=== PATIENT | male | born 1970 | race Caucasian/White ===

== ENCOUNTER 2016-10-27 03:23 | Observation (INO) | payer SELFPAY ==
[2016-10-27] MEDS ORDERED: SODIUM CHLORIDE 0.9% 1,000 ML IV STA (04:00)
[2016-10-27] MEDS ORDERED: MORPHINE SULFATE 4 MG/ML SYRINGE IV STA (04:00)
--- NOTE | 2016-10-27 04:03 | ED ---
General Adult HPI - General Chief complaint: Abdominal Pain Stated complaint: kidney pain Time Seen by Provider: 10/27/16 03:51 Source: patient, RN notes reviewed Mode of arrival: ambulatory Limitations: no limitations - History of Present Illness Initial comments: Patient is a pleasant 46-year-old male presenting to the emergency department complaining of bilateral flank pain. Patient has had some chronic symptoms since 2007. Patient takes medication to protect his kidneys. Patient does have a history in the distant past of lithium toxicity. Patient states he has been having some loose stools and decreased appetite for the past few days. Patient has had some muscle cramps. - Related Data Home Medications Medication Instructions Recorded Confirmed Cyclobenzaprine HCl 5 mg PO TID 10/27/16 10/27/16 Escitalopram Oxalate [Lexapro] 20 mg PO DAILY 10/27/16 10/27/16 Esomeprazole Magnesium [NexIUM] 40 mg PO DAILY 10/27/16 10/27/16 Lisinopril [Zestril] 5 mg PO DAILY 10/27/16 10/27/16 QUEtiapine [SEROquel] 200 mg PO DAILY 10/27/16 10/27/16 QUEtiapine [SEROquel] 800 mg PO HS 10/27/16 10/27/16 Rosuvastatin [Crestor] 20 mg PO DAILY 10/27/16 10/27/16 busPIRone HCL 10 mg PO BID 10/27/16 10/27/16 traMADol HCL [Ultram] 50 mg PO Q6HR PRN 10/27/16 10/27/16 traZODone HCL [Desyrel] 100 mg PO HS 10/27/16 10/27/16 Allergies Allergy/AdvReac Type Severity Reaction Status Date / Time Penicillins Allergy Swelling Verified 10/27/16 03:37 Sulfa (Sulfonamide Allergy Swelling Verified 10/27/16 03:37 Antibiotics) Review of Systems ROS Statement: Those systems with pertinent positive or pertinent negative responses have been documented in the HPI. ROS Other: All systems not noted in ROS Statement are negative. Constitutional: Denies: fever Eyes: Denies: eye pain ENT: Denies: ear pain Respiratory: Denies: cough Cardiovascular: Denies: chest pain Endocrine: Denies: fatigue Gastrointestinal: Denies: abdominal pain, vomiting Genitourinary: Denies: dysuria Musculoskeletal: Reports: back pain (Bilateral flank) Skin: Denies: rash Neurological: Denies: weakness Past Medical History Past Medical History: Renal Disease Additional Past Medical History / Comment(s): [place], Bipolar History of Any Multi-Drug Resistant Organisms: None Reported Past Surgical History: No Surgical Hx Reported Past Psychological History: Anxiety, Bipolar, Depression Smoking Status: Current every day smoker Past Alcohol Use History: None Reported Past Drug Use History: None Reported General Exam Limitations: no limitations General appearance: alert, in no apparent distress Head exam: Present: atraumatic Eye exam: Present: normal appearance, PERRL ENT exam: Present: normal oropharynx Neck exam: Present: normal inspection Respiratory exam: Present: normal lung sounds bilaterally Cardiovascular Exam: Present: regular rate, normal rhythm Expanded Peripheral pulses: 2+: Dorsalis Pedis (R), Dorsalis Pedis (L) GI/Abdominal exam: Present: soft. Absent: distended, tenderness, guarding, rebound, rigid Back exam: Present: CVA tenderness (R), CVA tenderness (L), other (Patient does have mild tenderness bilateral CVA region and below this.) Neurological exam: Present: alert Psychiatric exam: Present: normal affect, normal mood Skin exam: Absent: rash Course Vital Signs 10/27/16 03:31 Temperature 98.1 F Pulse Rate 118 H Respiratory 20 Rate Blood Pressure 117/66 O2 Sat by Pulse 99 Oximetry Medical Decision Making - Medical Decision Making Patient reevaluated and updated. Case discussed in detail with Dr. Wu, who will admit for hospital call. Patient does not have an acute surgical abdomen at this time. Pneumatosis coli could have multiple etiologies including possibly benign causes. Nevertheless this will be further evaluated with consults with gastroenterology and surgical - Lab Data Result diagrams: 10/27/16 04:05 10/27/16 04:05 Lab Results 10/27/16 10/27/16 10/27/16 Range/Units 04:05 04:05 04:05 WBC 10.9 H (3.8-10.6) k/uL RBC 4.16 L (4.30-5.90) m/uL Hgb 12.5 L (13.0-17.5) gm/dL Hct 39.4 (39.0-53.0) % MCV 94.8 (80.0-100.0) fL MCH 30.0 (25.0-35.0) pg MCHC 31.6 (31.0-37.0) g/dL RDW 15.7 H (11.5-15.5) % Plt Count 216 (150-450) k/uL Neutrophils % 64 % Lymphocytes % 25 % Monocytes % 5 % Eosinophils % 2 % Basophils % 0 % Neutrophils # 7.0 (1.3-7.7) k/uL Lymphocytes # 2.7 (1.0-4.8) k/uL Monocytes # 0.6 (0-1.0) k/uL Eosinophils # 0.3 (0-0.7) k/uL Basophils # 0.0 (0-0.2) k/uL PT 10.2 (9.0-12.0) sec INR 1.0 (<1.1) APTT 22.4 (22.0-30.0) sec Sodium 137 (137-145) mmol/L Potassium 4.0 (3.5-5.1) mmol/L Chloride 104 (98-107) mmol/L Carbon Dioxide 23 (22-30) mmol/L Anion Gap 10 mmol/L BUN 13 (9-20) mg/dL Creatinine 2.10 H (0.66-1.25) mg/dL Est GFR (MDRD) Af Amer 41 (>60 ml/min/1.73 sqM) Est GFR (MDRD) Non-Af 34 (>60 ml/min/1.73 sqM) Glucose 93 (74-99) mg/dL Calcium 9.0 (8.4-10.2) mg/dL Total Bilirubin 0.4 (0.2-1.3) mg/dL AST 17 (17-59) U/L ALT 24 (21-72) U/L Alkaline Phosphatase 96 (38-126) U/L Total Protein 6.7 (6.3-8.2) g/dL Albumin 4.1 (3.5-5.0) g/dL Amylase 67 (30-110) U/L Lipase 101 (23-300) U/L - Radiology Data Radiology results: image reviewed (Computed tomography scan of the abdomen pelvis shows some fluid-filled intestines, cholelithiasis, pneumatosis coli) Disposition Clinical Impression: Abdominal pain Disposition: ADMITTED IP TO THIS HOSP
[2016-10-27 04:17] LABS: Basophils % (A) 0 %; CH 30.4; CHCM 32.2; Eosinophils # (A) 0.3 k/uL (0-0.7); Eosinophils % (A) 2 %; HCT 39.4 % (39.0-53.0); HDW 2.67; HGB 12.5 gm/dL (13.0-17.5); Luc # (Auto) 0.31; Luc % (Auto) 3; Lymphocytes # (A) 2.7 k/uL (1.0-4.8); Lymphocytes % (A) 25 %; MCHC 31.6 g/dL (31.0-37.0); MCV 94.8 fL (80.0-100.0); Mean Platelet Volume 7.1; Monocytes # (A) 0.6 k/uL (0-1.0); Monocytes % (A) 5 %; Neutrophils % (A) 64 %; RBC 4.16 m/uL (4.30-5.90); RDW 15.7 % (11.5-15.5); WBC 10.9 k/uL (3.8-10.6); WBC (Perox) 11.07
[2016-10-27 04:31] LABS: Partial Thromboplastin Time 22.4 sec (22.0-30.0); Prothrombin Time 10.2 sec (9.0-12.0)
[2016-10-27 04:33] LABS: Total Bilirubin 0.4 mg/dL (0.2-1.3); Total Protein 6.7 g/dL (6.3-8.2)
--- NOTE | 2016-10-27 05:02 | CT ---
EXAM: CT Abdomen and Pelvis Without Intravenous Contrast. CLINICAL HISTORY: Reason: Bilateral flank pain TECHNIQUE: Axial computed tomography images of the abdomen and pelvis without intravenous contrast. CTDI is 10.00 mGy and DLP is 570.80 mGy-cm COMPARISON: No relevant prior studies available. FINDINGS: Limitations: Lack of intravenous contrast Lower thorax: Trace pericardial effusion versus thickening. Small hiatal hernia. Nonspecific subcentimeter periesophageal lymph nodes. ABDOMEN: Liver: No portal venous gas. Gallbladder and bile ducts: Cholelithiasis. Pancreas: Unremarkable. Spleen: Unremarkable. Adrenals: Unremarkable. Kidneys and ureters: Small partially exophytic low attenuating left renal lesions, likely cysts. Small partially exophytic right renal lesion is too small to characterize. No nephrolithiasis or hydroureteronephrosis. Stomach and bowel: Antidependent gas in the ascending colon is concerning for pneumatosis coli. No pericolonic stranding or definite bowel wall thickening. Prominent fluid-filled loops of distal small bowel without a transition point are nonspecific and can be seen in the setting of enteritis or an ileus. Appendix: No findings to suggest acute appendicitis. PELVIS: Bladder: Unremarkable. No stones. Reproductive: Unremarkable as visualized. ABDOMEN and PELVIS: Intraperitoneal space: Unremarkable. No free air. No significant fluid collection. Bones/joints: Degenerative changes of the spine. No acute osseous abnormality. Soft tissues: Unremarkable. Vasculature: Mild atherosclerosis and fusiform dilatation of the abdominal aorta. Lymph nodes: See above. IMPRESSION: Pneumatosis coli in the ascending colon. No colonic wall thickening, surrounding inflammatory change, portal venous gas, free fluid, or free air. Pneumatosis coli is a nonspecific finding with a broad differential including bowel ischemia, colitis, and multiple benign causes, including pulmonary disease, immunosuppression, and multiple medications. Prominent fluid-filled loops of distal small bowel without a transition point are nonspecific and can be seen in the setting of enteritis or an ileus. Cholelithiasis. [employer] 10/27/16 05:22 Verify Receipt Verified receipt with Dr. Velasquez on 10/27 05:22 (-04:00)
[2016-10-27] MEDS ORDERED: NALOXONE 0.4 MG/ML 1 ML VIAL IV PRN (05:17)
[2016-10-27] MEDS ORDERED: MORPHINE SULFATE 4 MG/ML SYRINGE IV PRN (05:17)
[2016-10-27 05:44] LABS: Appearance,Urine Clear (Clear); Bilirubin,Urine Negative (Negative); Glucose,Urine (UA) Negative (Negative); Ketones,Urine Negative (Negative); Leukocyte Esterase,Urine Negative (Negative); Nitrite,Urine Negative (Negative); Protein,Urine Trace (Negative); Specific Gravity,Urine 1.005 (1.001-1.035); UA Billing (MACRO vs. MICRO) CHEM; Urobilinogen,Urine <2.0 mg/dL (<2.0)
--- NOTE | 2016-10-27 08:53 | US ---
EXAMINATION TYPE: US gallbladder DATE OF EXAM: 10/27/2016 8:26 AM COMPARISON: CT abdomen pelvis same date CLINICAL HISTORY: Pain. EXAM MEASUREMENTS: Liver Length: 14.9 cm Gallbladder Wall: 0.2 cm CBD: 0.5 cm Right Kidney: 9.9 x 5.8 x 5.0 cm TECHNOLOGIST IMPRESSION: limited exam; liver high in chest, images limited to intercostal spaces Pancreas: Obscured by bowel gas Liver: intercostal scans, echo texture appears homogeneous Gallbladder: stone seen at neck Evidence for sonographic Paulino's sign: no CBD: wnl Right Kidney: No hydronephrosis or masses seen There is no ascites. IMPRESSION: Exam is limited. The liver is poorly penetrated by the ultrasound being. There may be fat ty infiltration of the liver versus hepatocellular disease, there is cholelithiasis
[2016-10-27] MEDS: PANTOPRAZOLE 40 MG/10 ML VIAL IV SCH (10:52)
[2016-10-27] MEDS: SODIUM CHLORIDE 0.9% 1,000 ML IV SCH ×2 (10:52→19:21)
--- NOTE | 2016-10-27 12:06 | P.CONS ---
History of Present Illness - Reason for Consult Consult date: 10/27/16 Pneumatosis coli Requesting physician: Tito Wu - History of Present Illness 46-year-old male with a history of cholelithiasis, GERD, hyperlipidemia, hypertension, chronic kidney disease, [place]'s, nicotine cigarette dependency, bipolar depression, lithium toxicity, and chronic numbness hands feet. Admitted with exacerbation of right flank pain over the last 3 days. Patient has had chronic flank pain for more than a year. He thinks the pain is related to his gallstones. He said about a year ago he was supposed to have a cholecystectomy but it was canceled. Intermittent diarrhea for the last 2 weeks several times a day sometimes blood-tinged. No recent travels or sick contacts. No recent antibiotics. No history of colonoscopy. No fevers or chills. Hemoglobin 12.5. MCV 94. White count 10.9. INR 1.0. Platelet 216. BUN 13. Creatinine 2.1. LFTs amylase lipase within normal limits. CT abdomen and pelvis without IVl contrast reported cholelithiasis. Renal cysts. Pneumatosis coli in the ascending colon without colonic wall thickening portal vein gas, fluid, or free air. Ultrasound abdomen cholelithiasis stone seen at neck. CBD 0.5 cm. Gallbladder wall 0.2 cm without pericholecystic fluid. Review of Systems Constitutional: Denies fever, chills, sweats, weight gain, or loss. HEENT: Negative for migraines, blurred vision or loss, earaches, drainage, tinnitus, oral mucosal lesions, dysphagia, or odynophagia. Cardiac: Hyperlipidemia. Hypertension. Negative for chest pain, arrhythmias, or palpitation. Respiratory: Nicotine cigarette dependency. Negative for shortness of breath, hemoptysis, cough, or sputum production. Gastrointestinal: See HPI for pertinent findings. Genitourinary: Negative for hematuria, urgency, frequency, polyuria, dysuria, or penile discharge. Musculoskeletal: [place]'s disease. Negative for muscle aches, swelling, arthritis, and arthralgias. Neurologic: Negative for stroke or TIA. Chronic numbness in hands and feet. Endocrine: Negative for thyroid problems. Nephrology: Chronic kidney disease stage III. Skin: Negative for rash or itching. Psychiatric: Bipolar depression. All systems: negative (See HPI) Past Medical History Past Medical History: GERD/Reflux, Hyperlipidemia, Hypertension, Renal Disease Additional Past Medical History / Comment(s): Cindi, Pt states he has gallstones and is suppose to have his gallbladder removed, past lithium toxicity , CKD stage III B, gastritis, bilateral hands and feet pain and numbness, headaches. History of Any Multi-Drug Resistant Organisms: None Reported Past Surgical History: No Surgical Hx Reported Past Anesthesia/Blood Transfusion Reactions: Motion Sickness Additional Past Anesthesia/Blood Transfusion Reaction / Comm: Pt has never had general or spinal anesthesia. Past Psychological History: Anxiety, Bipolar, Depression Additional Psychological History / Comment(s): Pt moved from [place] to [place] in March 2016. He is living with his two teenage sons, one of which has cerebral palsy (high functioning). Pt has been using his wheelchair lately due to not feeling well. Pt drives. There is also a dog and puppy in the home. Smoking Status: Current every day smoker Past Alcohol Use History: None Reported Additional Past Alcohol Use History / Comment(s): Pt states he started smoking in 1979 and is cutting down. He is now less than a pack a day smoker. He also smokes an E-cigarette. Past Drug Use History: None Reported - Past Family History Father Family Medical History: Myocardial Infarction ([place]) Additional Family Medical History / Comment(s): Father of a [place] at the age of 63yrs. Mother Additional Family Medical History / Comment(s): Mother is living. She has a bone density problem. Medications and Allergies Home Medications Medication Instructions Recorded Confirmed Type Cyclobenzaprine HCl 5 mg PO TID 10/27/16 10/27/16 History Escitalopram Oxalate [Lexapro] 40 mg PO DAILY 10/27/16 10/27/16 History Esomeprazole Magnesium [NexIUM] 40 mg PO DAILY 10/27/16 10/27/16 History Lisinopril [Zestril] 5 mg PO DAILY 10/27/16 10/27/16 History QUEtiapine [SEROquel] 200 mg PO DAILY 10/27/16 10/27/16 History QUEtiapine [SEROquel] 800 mg PO HS 10/27/16 10/27/16 History Rosuvastatin [Crestor] 20 mg PO DAILY 10/27/16 10/27/16 History busPIRone HCL 10 mg PO BID 10/27/16 10/27/16 History traMADol HCL [Ultram] 50 - 100 mg PO Q6HR PRN 10/27/16 10/27/16 History traZODone HCL [Desyrel] 300 mg PO HS 10/27/16 10/27/16 History Allergies Allergy/AdvReac Type Severity Reaction Status Date / Time Penicillins Allergy Swelling Verified 10/27/16 08:04 Sulfa (Sulfonamide Allergy Swelling Verified 10/27/16 08:04 Antibiotics) tomato Allergy Unknown Verified 10/27/16 08:04 Physical Exam Vitals: Vital Signs Temp Pulse Pulse Resp BP BP Pulse Ox 10/27/16 08:00 70 10/27/16 07:49 97.8 F 84 16 115/69 93 L 10/27/16 06:13 86 16 124/73 98 Intake and Output 10/26/16 10/27/16 10/27/16 22:59 06:59 14:59 Other: Voiding Method Toilet Urinal General appearance: The patient is alert, oriented, in no acute distress. HET: Head is normocephalic and atraumatic. Pupils are equal and reactive. Oropharynx is clear without lesions. Neck: Supple without lymphadenopathy. Trachea midline. Heart: S1 S2. Regular rate and rhythm. Lungs: No crackles or wheezes are heard. Abdomen: Soft, very mild tenderness to right mid quadrant/flank, negative CVA tenderness, nondistended with bowel sounds. No peritoneal signs. No palpable organomegaly or masses. Extremities: Normal skin color and turgor. No cyanosis, rash, ulceration, clubbing, or edema. Radial and pedal pulses are 2/4 bilaterally. Neurological: No focal deficits. Strength and sensation are grossly intact. Results CBC & Chem 7: 10/27/16 04:05 10/27/16 04:05 Labs: Abnormal Lab Results - Last 24 Hours (Table) 10/27/16 Range/Units 05:30 Urine Protein Trace H (Negative) CT scan - abdomen: report reviewed (Reviewed by Dr. Alcantar) CT scan - pelvis: report reviewed (Reviewed by Dr. Alcantar) Assessment and Plan (1) Acute right flank pain Narrative/Plan: Pneumatosis coli ascending colon as reported on CT etiology unclear Status: Acute (2) Diarrhea Narrative/Plan: Possible self limiting infectious colitis possible inflammatory Status: Acute (3) Cholelithiasis Status: Acute Plan: 1. Stool studies. 2. Gen. surgical evaluation. 3. Nothing by mouth except medications until evaluated by general surgery. 4. Colonoscopy discussed as outpatient; contingent inpatient based on clinical course. We'll reevaluate and follow closely with you. Await surgical opinion. Thank you for this kind referral and the opportunity to participate in the care of your patient. This consultation was discussed with Dr. Alcantar. The impression and plan of care have been directed as dictated.
[2016-10-27] MEDS ORDERED: TEMAZEPAM 15 MG CAP PO PRN (15:09)
--- NOTE | 2016-10-27 15:29 | P.GSCN ---
<Jeannette Gross - Last Filed: 10/27/16 15:17> History of Present Illness Consult date: 10/27/16 Reason for Consult: surgical eval bilateral flank pain History of present illness: 46-year-old male patient being seen at the request of the attending for a surgical eval for recommendations to address an ultrasound of the abdomen showing cholelithiasis.with a stone at the neck. Common bile duct measures 0.5 cm. The gallbladder wall measures 0.2 cm without . periCholecysticfluid. This 46-year-old gentleman reports that he moved from [place] in March 2 [facility] where he has been living. He states he has no medical doctor. Patient states that he came into the emergency room to be evaluated for developing right flank pain. Patient states that he has had for the past several months bright red bloody stools. Additionally patient reports that when he lived in [place] in March he did see a surgeon who told him his gallbladder needed to be removed and they would also do a colonoscopy as part of a workup for the for the episodes of frequent stooling with blood noted in the stool. Patient does have a history of a mood disorder bipolar type I patient states he has not seen a psychiatrist since he has moved from [place] Patient had a CAT scan of the abdomen pelvis without IV contrast it did report cholelithiasis with renal cysts. Also noted Pneumatosis coli in the ascending colon without colonic wall thickening portal vein gas, fluid, or free air. Ultrasound abdomen cholelithiasis stone seen at neck. CBD 0.5 cm. Gallbladder wall 0.2 cm without pericholecystic fluid. The labs were reviewed hemoglobin 12.5. Creatinine 2.1 in the liver function studies amylase and lipase were within normal limits. Patient states has not been experiencing any cough fever or chills. This been no recent change in medication or recent travel or contacts additionally patient denies any unintentional weight loss patient is a current every day smoker smokes a cigarettes patient gives no history of alcohol Review of Systems Essentially unremarkable except as mentioned in the present illness Past Medical History Past Medical History: GERD/Reflux, Hyperlipidemia, Hypertension, Renal Disease Additional Past Medical History / Comment(s): Cindi Pt states he has gallstones and is suppose to have his gallbladder removed, past lithium toxicity , CKD stage III B, gastritis, bilateral hands and feet pain and numbness, headaches. History of Any Multi-Drug Resistant Organisms: None Reported Past Surgical History: No Surgical Hx Reported Past Anesthesia/Blood Transfusion Reactions: Motion Sickness Additional Past Anesthesia/Blood Transfusion Reaction / Comm: Pt has never had general or spinal anesthesia. Past Psychological History: Anxiety, Bipolar, Depression Additional Psychological History / Comment(s): Pt moved from [place] to [place] in March 2016. He is living with his two teenage sons, one of which has cerebral palsy (high functioning). Pt has been using his wheelchair lately due to not feeling well. Pt drives. There is also a dog and puppy in the home. Smoking Status: Current every day smoker Past Alcohol Use History: None Reported Additional Past Alcohol Use History / Comment(s): Pt states he started smoking in 1979 and is cutting down. He is now less than a pack a day smoker. He also smokes an E-cigarette. Past Drug Use History: None Reported - Past Family History Father Family Medical History: Myocardial Infarction ([place]) Additional Family Medical History / Comment(s): Father of a [place] at the age of 63yrs. Mother Additional Family Medical History / Comment(s): Mother is living. She has a bone density problem. Medications and Allergies Home Medications Medication Instructions Recorded Confirmed Type Cyclobenzaprine HCl 5 mg PO TID 10/27/16 10/27/16 History Escitalopram Oxalate [Lexapro] 40 mg PO DAILY 10/27/16 10/27/16 History Esomeprazole Magnesium [NexIUM] 40 mg PO DAILY 10/27/16 10/27/16 History Lisinopril [Zestril] 5 mg PO DAILY 10/27/16 10/27/16 History QUEtiapine [SEROquel] 200 mg PO DAILY 10/27/16 10/27/16 History QUEtiapine [SEROquel] 800 mg PO HS 10/27/16 10/27/16 History Rosuvastatin [Crestor] 20 mg PO DAILY 10/27/16 10/27/16 History busPIRone HCL 10 mg PO BID 10/27/16 10/27/16 History traMADol HCL [Ultram] 50 - 100 mg PO Q6HR PRN 10/27/16 10/27/16 History traZODone HCL [Desyrel] 300 mg PO HS 10/27/16 10/27/16 History Allergies Allergy/AdvReac Type Severity Reaction Status Date / Time Penicillins Allergy Swelling Verified 10/27/16 08:04 Sulfa (Sulfonamide Allergy Swelling Verified 10/27/16 08:04 Antibiotics) tomato Allergy Unknown Verified 10/27/16 08:04 Surgical - Exam Vital Signs Temp Pulse Resp BP Pulse Ox 98.1 F 118 H 20 117/66 99 10/27/16 03:31 10/27/16 03:31 10/27/16 03:31 10/27/16 03:31 10/27/16 03:31 GENERAL APPEARANCE: 46-year-old male patient is alert, oriented, in no acute distress. Talkative VITAL SIGNS: Reviewed HEENT: Head is normocephalic and atraumatic. Pupils are equal and reactive. The nares are patent. Oropharynx is clear without lesions. NECK: Supple without lymphadenopathy. Traches midline. HEART: S1, S2. Regular rate and rhythm. No murmur noted denying chest pain LUNGS: No crackles or wheezes are heard. Adequate air movement bilaterally ABDOMEN: Soft, nontender, nondistended with good bowel sounds. No peritoneal signs. No palpable organomegaly or masses. Able to palpate abdominal wall no facial grimacing reports having tenderness to right flank discomfort patient states he has had not had a bowel movement since admission but had several bowel movements the day before that were bright red blood in the toilet bowl noted states the stools are not black in color states urinating no difficulty EXTREMITIES: Normal skin color and turgor. No cyanosis, rash, ulceration, clubbing or edema. Radial pedal pulses are 2/4 bilaterally. NEUROLOGICAL: No focal deficits. Strength and sensation are grossly intact. Results - Labs 10/27/16 04:05 10/27/16 04:05 Abnormal Lab Results - Last 24 Hours (Table) 10/27/16 Range/Units 05:30 Urine Protein Trace H (Negative) Assessment and Plan Plan: Impression Present on admission acute right flank pain CAT scan reports Pneumatosis coli ascending colon unclear etiology History of bright red diarrhea frequent stooling likely due to self-limiting infectious colitis possible inflammatory History of bipolar type I disorder Current every day smoker Ultrasound abdomen likely acute cholelithiasis Plan We'll repeat an abdominal x-ray in the morning Follow up on stool studies dr huston discussed with the patient recommendations to do colonoscopy could be done in an outpatient setting possible cholecystectomy for the cholelithiasis once patient is stable which could be addressed in the outpatient setting a follow-up visit in the office with Pain control Further recommendations pending will follow Psych recommendations bipolar type I Thank you for this kind referral and the opportunity to participate in the care of your patient. This consultation was discussed with Dr. huston . The impression and plan of care have been directed as dictated. Per Dr. huston <Arabella Huston - Last Filed: 10/27/16 17:12> Surgical - Exam Vital Signs Temp Pulse Resp BP Pulse Ox 98.1 F 118 H 20 117/66 99 10/27/16 03:31 10/27/16 03:31 10/27/16 03:31 10/27/16 03:31 10/27/16 03:31 Results - Labs 10/27/16 04:05 10/27/16 04:05 Abnormal Lab Results - Last 24 Hours (Table) 10/27/16 10/27/16 Range/Units 05:30 12:13 Plasma Lactic Acid Martinez <0.5 L (0.7-2.0) mmol/L Urine Protein Trace H (Negative) Assessment and Plan Plan: Patient examines at bedside with [employer] Jeannette Gross. Unreliable history - bipolar disorder and unclear about prior treatments in [place]. Benign abdominal exam. No peritonitis. Ct scan and US reviwed. Normal labs .Recommend outpatient colonoscopy as per GI. elective lap eileen once colonoscopy is performed. Repeat am Xrays and labs. Strongly recommend pyschiatry evaluation as inpatient.Please determine if patient is competent bruno make medical decisions. Thank you for the consultation
[2016-10-27] MEDS ORDERED: LEVOFLOXACIN 500MG-D5W PMX 500 MG in DEXTROSE/WATER 1 100ML.BAG IVPB SCH (16:00)
[2016-10-27] MEDS: CYCLOBENZAPRINE 5 MG TAB PO SCH ×2 (18:29→21:08)
[2016-10-27] MEDS: QUEtiapine 200 MG TAB PO SCH (18:29)
--- NOTE | 2016-10-27 18:53 | HP ---
DATE OF ADMISSION: 10/27/2016 CHIEF COMPLAINT: Complaining of abdominal pain. HISTORY OF PRESENT ILLNESS: This 46-year-old gentleman with a past history of multiple medical problems including GERD, hypertension, history of Moore's disease, history of renal disease, history of bipolar, history of anxiety bipolar depression, being followed by primary physician in the [facility], recently moved to [facility]. The patient is complaining of abdominal pain on and off for the last several years. The patient has been getting worse for the past several days and the patient came to [facility] Emergency Room Department and admitted to the hospital for further evaluation and treatment. The patient had a CAT scan of the abdomen which showed pneumocystis coli, and as well as cholelithiasis and surgical evaluation in progress also. The ultrasound showed cholelithiasis as well as fatty infiltration also. There is no history of fever, rigors or chills. No history of loss of consciousness or seizures. PAST MEDICAL HISTORY: History of gastroesophageal reflux disease, hypertension, hyperlipidemia, history of renal disease, disease, anxiety, bipolar depression. Medication prior to admission includes: 1. Desyrel 300 mg q.h.s. 2. Ultram 50 to 100 q.6 p.r.n. 3. Lexapro 40 mg daily. 4. Buspirone 10 mg b.i.d. 5. Crestor 20 mg q.a.m. 6. Seroquel q.h.s. 200 mg daily. 7. Zestril 5 mg p.o. daily. 8. Nexium 40 mg daily. ALLERGIES: PENICILLIN . FAMILY HISTORY: History of myocardial infarction in the family. SOCIAL HISTORY: History of smoking on a regular basis. No history of alcohol intake. REVIEW OF SYSTEMS: ENT: No diminished hearing. No diminished vision. CARDIOVASCULAR: No angina or palpitations. RESPIRATORY: No cough or hemoptysis. GI: No nausea or vomiting. GENITOURINARY: No dysuria. MUSCULOSKELETAL: As mentioned earlier. CENTRAL NERVOUS SYSTEM: No numbness or weakness. ALLERGY/IMMUNOLOGY: No asthma or hayfever. MUSCULOSKELETAL: As mentioned earlier. HEMATOLOGY/ONCOLOGY: No history of anemia. ENDOCRINE: As mentioned earlier. CONSTITUTIONAL: As mentioned earlier. DERMATOLOGY: Negative. RHEUMATOLOGY: As mentioned earlier. PSYCHIATRY: As mentioned earlier. PHYSICAL EXAMINATION: The patient is alert and oriented times three. Pulse is 84, blood pressure 115/69, respiratory rate 16, temperature 97.8, pulse ox 97% on room air. HEENT: Conjunctivae normal. Oral mucosa moist. NECK: No jugular venous distention. No carotid bruit. No lymph node enlargement. CARDIOVASCULAR: S1, S2 muffled. No S3, no S4. RESPIRATORY: Breath sounds diminished at the bases. Bilateral scattered rhonchi and crackles. ABDOMEN: Soft and nontender. Mild diffuse tenderness in the right upper quadrant present. Otherwise, no guarding, no rigidity. No mass palpable. tenderness is not present. No ascites. Legs: No edema, no swelling. Nervous system: Higher functions as mentioned earlier. No focal deficits. Moves all four limbs. LYMPHATICS: No lymph nodes palpable in the neck, axillae or groin. SKIN: No ulcer, rash or bleeding. LABS: WBC 10.3, hemoglobin 12.5, creatinine 2.10. ASSESSMENT: 1. Abdominal pain with acute cholelithiasis. 2. pneumatosis coli. 3. Increased WBC. 4. Anemia, normocytic. 5. Increased creatinine with mild acute renal failure, possible prerenal with dehydration. 6. History of gastroesophageal reflux disease. 7. Hypertension, essential. 8. Hyperlipidemia. 9. History of Moore's disease. 10. History of chronic kidney disease, stage III. 11. History of lithium toxicity. 12. History of anxiety, bipolar depression. 13. Remote history of nicotine dependence. 14. FULL CODE. RECOMMENDATIONS AND DISCUSSION: In this 46-year-old gentleman who presented with multiple complex medical issues, we will monitor the patient closely. Continue the current medications. Continue symptomatic treatment. We will initiate IV fluids and surgical evaluation, broad-spectrum antibiotics also will be given. Guarded prognosis because of multiple complex medical issues. Further recommendations to follow. DVT prophylaxis. See orders for further details. Home medications reconciliation has been done. Further recommendations to follow. Also recommend the patient to follow up with primary physician also. [place]
[2016-10-27] MEDS: ESCITALOPRAM 20 MG TAB PO SCH (19:17)
[2016-10-27] MEDS ORDERED: traZODone HCL 100 MG TAB PO SCH (21:00)
[2016-10-27] MEDS ORDERED: QUEtiapine 400 MG TAB PO SCH (21:00)
[2016-10-27] MEDS: busPIRone HCl 10 MG TAB PO SCH (21:08)
[2016-10-27] MEDS: HEPARIN SODIUM,PORCINE 5,000 UNIT/ML 1 ML VIAL SQ SCH (21:08)
[2016-10-28] MEDS: SODIUM CHLORIDE 0.9% 1,000 ML IV SCH ×2 (04:40→12:22)
[2016-10-28 08:04] VITALS: BP 103/59; PULSE 98; RESP 18; TEMP 96.9
[2016-10-28] MEDS ORDERED: NON-FORMULARY DRUG (Esomeprazole Magnesium [Nexium] 40 MG) PO SCH (09:00)
[2016-10-28 09:32] LABS: Basophils % (A) 0 %; CH 29.7; CHCM 31.1; Eosinophils # (A) 0.1 k/uL (0-0.7); Eosinophils % (A) 2 %; HCT 34.5 % (39.0-53.0); HDW 2.65; HGB 10.9 gm/dL (13.0-17.5); Hypochromasia Slight; Luc # (Auto) 0.16; Luc % (Auto) 2; Lymphocytes # (A) 1.7 k/uL (1.0-4.8); Lymphocytes % (A) 19 %; MCH 30.3 pg (25.0-35.0); MCHC 31.5 g/dL (31.0-37.0); Mean Platelet Volume 6.6; Monocytes # (A) 0.5 k/uL (0-1.0); Monocytes % (A) 5 %; Neutrophils # (A) 6.4 k/uL (1.3-7.7); Neutrophils % (A) 72 %; RBC 3.59 m/uL (4.30-5.90); RDW 15.6 % (11.5-15.5); WBC 8.9 k/uL (3.8-10.6); WBC (Perox) 9.59
[2016-10-28 09:40] LABS: Calcium 8.6 mg/dL (8.4-10.2); Potassium 4.5 mmol/L (3.5-5.1); Total Bilirubin 0.5 mg/dL (0.2-1.3); Total Protein 5.5 g/dL (6.3-8.2)
--- NOTE | 2016-10-28 09:44 | XR ---
EXAMINATION TYPE: XR abdomen 2V DATE OF EXAM: 10/28/2016 7:19 AM COMPARISON: NONE HISTORY: Right upper quadrant pain TECHNIQUE: One view abdominal series FINDINGS: The osseous structures are intact. The bowel gas pattern is nonspecific. Calcifications in the pelvi s are likely vascular. IMPRESSION: 1. Nonspecific abdomen.
[2016-10-28] MEDS: busPIRone HCl 10 MG TAB PO SCH (10:00)
[2016-10-28] MEDS: PANTOPRAZOLE 40 MG/10 ML VIAL IV SCH (10:01)
[2016-10-28] MEDS: ESCITALOPRAM 20 MG TAB PO SCH (10:01)
[2016-10-28] MEDS: HEPARIN SODIUM,PORCINE 5,000 UNIT/ML 1 ML VIAL SQ SCH (10:01)
[2016-10-28] MEDS: CYCLOBENZAPRINE 5 MG TAB PO SCH (10:01)
[2016-10-28] MEDS: QUEtiapine 200 MG TAB PO SCH (10:02)
--- NOTE | 2016-10-28 11:03 | P.PN ---
Subjective Principal diagnosis: Right flank abdominal pain with diarrhea 46-year-old male admitted with right flank pain and diarrhea with cholelithiasis. No reports of diarrhea. Pain is improving. Afebrile. Objective - Vital Signs Vital signs: Vital Signs Temp 96.9 F L 10/28/16 08:03 Pulse 98 10/28/16 08:03 Resp 18 10/28/16 08:03 BP 103/59 10/28/16 08:03 Pulse Ox 90 L 10/28/16 08:03 Intake & Output 10/27/16 10/28/16 10/28/16 18:59 06:59 18:59 Intake Total 240 1090 Output Total 942 279 2267 Balance -560 465 -1400 Intake: IV 1090 Levofloxacin 500Mg-D5w 100 Pmx 500 mg In Dextrose/ Water 1 100ml.bag @ 100 mls/hr IVPB Q24H [facility] Rx#: [id number] Sodium Chloride 0.9% 1, 990 000 ml @ 110 mls/hr IV . Q9H6M [facility] Rx#:[id number] Oral 240 Output: Urine 099 795 0814 Other: Voiding Method Toilet Toilet Toilet Urinal Urinal # Voids 2 - Exam General appearance: The patient is alert, oriented, in no acute distress. HET: Head is normocephalic and atraumatic. Pupils are equal and reactive. Oropharynx is clear without lesions. Neck: Supple without lymphadenopathy. Trachea midline. Heart: S1 S2. Regular rate and rhythm. Lungs: No crackles or wheezes are heard. Abdomen: Soft, nontender, nondistended with bowel sounds. No peritoneal signs. No palpable organomegaly or masses. Extremities: Normal skin color and turgor. No cyanosis, rash, ulceration, clubbing, or edema. Radial and pedal pulses are 2/4 bilaterally. Neurological: No focal deficits. Strength and sensation are grossly intact. - Labs CBC & Chem 7: 10/28/16 08:42 10/28/16 08:42 Labs: Abnormal Lab Results - Last 24 Hours (Table) 10/27/16 10/28/16 10/28/16 Range/Units 12:13 08:42 08:42 RBC 3.59 L (4.30-5.90) m/uL Hgb 10.9 L (13.0-17.5) gm/dL Hct 34.5 L (39.0-53.0) % RDW 15.6 H (11.5-15.5) % Chloride 116 H (98-107) mmol/L Carbon Dioxide 20 L (22-30) mmol/L Creatinine 1.87 H (0.66-1.25) mg/dL Plasma Lactic Acid Martinez <0.5 L (0.7-2.0) mmol/L Total Protein 5.5 L (6.3-8.2) g/dL Albumin 3.1 L (3.5-5.0) g/dL Microbiology - Last 24 Hours (Table) 10/27/16 15:45 Urine Culture - Preliminary Urine,Voided Assessment and Plan (1) Acute right flank pain Narrative/Plan: Pneumatosis coli ascending colon as reported on CT etiology unclear Status: Acute (2) Diarrhea Narrative/Plan: Possible self limiting infectious colitis possible inflammatory Status: Acute (3) Cholelithiasis Status: Acute Plan: 1. Stool studies. 2. Gen. surgical evaluation appreciated. 3. Start diet if agreeable with general surgery. 4. Colonoscopy discussed as outpatient; we'll schedule next week. We'll follow as needed.. Assessment and plan of care discussed with Dr. Alcantar.
--- NOTE | 2016-10-28 12:31 | P.PN ---
<Kiana Grossne M - Last Filed: 10/28/16 12:27> Subjective Being seen this morning is resting in bed. Patient states his pain has improved is been no document stooling the abdominal x-ray obtained this morning nonspecific abdominal findings no acute GI service indicates that there is no further workup at this time they will see patient in an outpatient setting and set up for an outpatient colonoscopy to be done reinforced to the patient. Objective - Vital Signs Vital signs: Vital Signs Temp 96.9 F L 10/28/16 08:03 Pulse 98 10/28/16 08:03 Resp 18 10/28/16 08:03 BP 103/59 10/28/16 08:03 Pulse Ox 90 L 10/28/16 08:03 Intake & Output 10/27/16 10/28/16 10/28/16 18:59 06:59 18:59 Intake Total 240 1090 Output Total 586 081 0157 Balance -560 465 -1400 Intake: IV 1090 Levofloxacin 500Mg-D5w 100 Pmx 500 mg In Dextrose/ Water 1 100ml.bag @ 100 mls/hr IVPB Q24H [facility] Rx#: [id number] Sodium Chloride 0.9% 1, 990 000 ml @ 110 mls/hr IV . Q9H6M [facility] Rx#:[id number] Oral 240 Output: Urine 933 130 2909 Other: Voiding Method Toilet Toilet Toilet Urinal Urinal # Voids 2 - Exam Physical exam 46-year-old male resting in bed does not appear in any acute distress states the abdominal pain has resolved there's been no further stool tolerating diet Lungs essentially clear adequate air movement Heart S1 and S2 audible regular Abdomen soft not distended no facial grimacing with palpitation to the abdominal wall no stool no nausea no vomiting Extremities no edema noted - Labs CBC & Chem 7: 10/28/16 08:42 10/28/16 08:42 Labs: Abnormal Lab Results - Last 24 Hours (Table) 10/27/16 10/28/16 10/28/16 Range/Units 12:13 08:42 08:42 RBC 3.59 L (4.30-5.90) m/uL Hgb 10.9 L (13.0-17.5) gm/dL Hct 34.5 L (39.0-53.0) % RDW 15.6 H (11.5-15.5) % Chloride 116 H (98-107) mmol/L Carbon Dioxide 20 L (22-30) mmol/L Creatinine 1.87 H (0.66-1.25) mg/dL Plasma Lactic Acid Martinez <0.5 L (0.7-2.0) mmol/L Total Protein 5.5 L (6.3-8.2) g/dL Albumin 3.1 L (3.5-5.0) g/dL Microbiology - Last 24 Hours (Table) 10/27/16 15:45 Urine Culture - Preliminary Urine,Voided Assessment and Plan Plan: Impression Present on admission acute right flank pain CAT scan reports Pneumatosis coli ascending colon unclear etiology History of bright red diarrhea frequent stooling likely due to self-limiting infectious colitis possible inflammatory History of bipolar type I disorder Current every day smoker Ultrasound abdomen likely acute cholelithiasis Plan GI indicates that they will set up for the patient to have an outpatient colonoscopy will see patient in the outpatient setting will schedule next week Follow up on stool studies dr huston discussed with the patient recommendations to do colonoscopy could be done in an outpatient setting possible cholecystectomy for the cholelithiasis once patient is stable which could be addressed in the outpatient setting a follow-up visit in the office with Pain control Further recommendations pending will follow Psych recommendations bipolar type I Thank you for this kind referral and the opportunity to participate in the care of your patient. This consultation was discussed with Dr. huston . The impression and plan of care have been directed as dictated. Per Dr. huston <Arabella Huston - Last Filed: 10/28/16 15:01> Objective - Vital Signs Vital signs: Vital Signs Temp 96.9 F L 10/28/16 08:03 Pulse 98 10/28/16 08:03 Resp 18 10/28/16 08:03 BP 103/59 10/28/16 08:03 Pulse Ox 90 L 10/28/16 08:03 Intake & Output 10/27/16 10/28/16 10/28/16 18:59 06:59 18:59 Intake Total 240 1090 Output Total 232 320 8947 Balance -560 465 -1400 Intake: IV 1090 Levofloxacin 500Mg-D5w 100 Pmx 500 mg In Dextrose/ Water 1 100ml.bag @ 100 mls/hr IVPB Q24H [facility] Rx#: [id number] Sodium Chloride 0.9% 1, 990 000 ml @ 110 mls/hr IV . Q9H6M [facility] Rx#:[id number] Oral 240 Output: Urine 619 198 4804 Other: Voiding Method Toilet Toilet Toilet Urinal Urinal # Voids 2 - Labs CBC & Chem 7: 10/28/16 08:42 10/28/16 08:42 Labs: Abnormal Lab Results - Last 24 Hours (Table) 10/28/16 10/28/16 Range/Units 08:42 08:42 RBC 3.59 L (4.30-5.90) m/uL Hgb 10.9 L (13.0-17.5) gm/dL Hct 34.5 L (39.0-53.0) % RDW 15.6 H (11.5-15.5) % Chloride 116 H (98-107) mmol/L Carbon Dioxide 20 L (22-30) mmol/L Creatinine 1.87 H (0.66-1.25) mg/dL Total Protein 5.5 L (6.3-8.2) g/dL Albumin 3.1 L (3.5-5.0) g/dL Microbiology - Last 24 Hours (Table) 10/27/16 15:45 Urine Culture - Preliminary Urine,Voided Assessment and Plan Plan: Patient examined. Labs, clinical exam within normal limits. Colonoscopy as outpatient as per GI. Needs pyschiatry evaluation. Outpatient lap choleystectomuy after colonoscopy. Follow up as outpatient in [facility].
--- NOTE | 2016-10-29 10:17 | DS ---
DATE OF ADMISSION: 10/27/2016 DATE OF DISCHARGE: 10/28/2016 FINAL DIAGNOSES: 1. Abdominal pain with acute cholelithiasis. 2. Pneumatosis coli. 3. Increased WBC. 4. Anemia, normocytic. 5. Increased creatinine, mild acute renal failure, possibly prerenal with dehydration, present on admission. 6. History of gastroesophageal reflux disease. 7. Hypertension, essential. 8. Hyperlipidemia. 9. History Craven disease. 10. History of chronic kidney disease, stage 3. 11. History of lithium toxicity. 12. History of anxiety, bipolar depression. 13. Remote history of nicotine dependence. 14. FULL CODE. DISCHARGE DISPOSITION: Patient will be discharged in stable condition with guarded prognosis. HISTORY OF PRESENT ILLNESS: This 46-year-old gentleman with a past medical history of multiple medical problems who was admitted with abdominal pain and features of acute cholelithiasis. Patient was treated in conjunction with Surgery, who recommended outpatient followup. The patient also needs a colonoscopy per Dr. Huston. abdomen was also done. CT scan was also reviewed. was reportedly nonspecific. The patient improved significantly. Patient was keen on going home. On exam, vitals are stable. CARDIOVASCULAR: S1, S2 muffled. ABDOMEN: Soft. NERVOUS SYSTEM: No focal deficits. DISCHARGE ADVICE AND MEDICATIONS: 1. Activity limited until followup. 2. Followup with Dr. Huston is recommended. 3. Follow up with the primary physician, . 4. Flexeril 5 mg p.o. t.i.d. 5. Lexapro 40 mg p.o. daily. 6. Magnesium 40 mg p.o. daily. 7. Levaquin 500 mg p.o. daily for 5 days. 8. Zestril 5 mg p.o. daily. 9. Seroquel 200 mg p.o. daily and 800 mg p.o. q.h.s. 10. Crestor 20 mg p.o. daily. 11. Buspirone 10 mg p.o. b.i.d. 12. Ultram 50 to 100 mg p.o. every 6 hours p.r.n. 13. Desyrel 300 mg p.o. q.h.s. MTDD
== END 2016-10-28 14:25 | disposition home or self-care (01) ==
LOC: EC 03:23 → 5MS5E 05:17
PROVIDERS: ADMIT Internal Medicine; ATTEND Internal Medicine
DX: R10.9 Unspecified abdominal pain (principal); K80.20 Calculus of gallbladder without cholecystitis without obstruction; K63.89 Other specified diseases of intestine; D72.829 Elevated white blood cell count, unspecified; N17.9 Acute kidney failure, unspecified; E86.0 Dehydration; K21.9 Gastro-esophageal reflux disease without esophagitis; E78.5 Hyperlipidemia, unspecified; I12.9 Hypertensive chronic kidney disease with stage 1 through stage 4 chronic kidney disease, or unspecified chronic kidney disease; N18.3 Chronic kidney disease, stage 3 (moderate); G10 Huntington's disease; F41.9 Anxiety disorder, unspecified; F31.9 Bipolar disorder, unspecified; F17.210 Nicotine dependence, cigarettes, uncomplicated; R51 Headache; R20.0 Anesthesia of skin; D64.9 Anemia, unspecified; N28.9 Disorder of kidney and ureter, unspecified; A09 Infectious gastroenteritis and colitis, unspecified; Z79.899 Other long term (current) drug therapy; Z79.891 Long term (current) use of opiate analgesic; Z88.0 Allergy status to penicillin; Z88.2 Allergy status to sulfonamides; Z91.018 Allergy to other foods; Z82.49 Family history of ischemic heart disease and other diseases of the circulatory system
CPT/HCPCS: 36415; 80053 ×2; 82150; 83605; 83690; 85025 ×2; 85610; 85730; 81003; 87040; 87086; 74020; 76705; 74176; 99285; 96375; 96361; G0378 ×2; J2270; J1644 ×2; J1956; C9113 ×2; 93005; 96365; 96372; 96376

== ENCOUNTER 2016-11-04 20:57 | Inpatient (IN) | payer SELFPAY ==
--- NOTE | 2016-11-04 21:41 | ED ---
Abdominal Pain HPI - General Chief Complaint: Abdominal Pain Stated Complaint: Abd Pain/Vomiting Time Seen by Provider: 11/04/16 21:37 Source: patient Mode of arrival: EMS Limitations: no limitations - History of Present Illness Initial Comments: Nacho W him a colonoscopy today unfortunately after colonoscopy me when it is some complication then there is a question of perforation, initially was seen and now [facility] then he was evaluated by him ER doctor in [place] they diagnosed him with a perforation rub, he was seen and [facility] the head mid abdominal x-rays then numb CT abdomen was done CT abdomen showed small focus of free air noticed outside the bowel lumen in right lower quadrant area most consistent with a perforation of the colon he does have a cholelithiasis A does have a small sized hiatal hernia as well - Related Data Home Medications Medication Instructions Recorded Confirmed Cyclobenzaprine HCl 5 mg PO TID 10/27/16 11/04/16 Escitalopram Oxalate [Lexapro] 40 mg PO DAILY 10/27/16 11/04/16 Esomeprazole Magnesium [NexIUM] 40 mg PO DAILY 10/27/16 11/04/16 Lisinopril [Zestril] 5 mg PO DAILY 10/27/16 11/04/16 QUEtiapine [SEROquel] 200 mg PO DAILY 10/27/16 11/04/16 QUEtiapine [SEROquel] 800 mg PO HS 10/27/16 11/04/16 Rosuvastatin [Crestor] 20 mg PO DAILY 10/27/16 11/04/16 busPIRone HCL 10 mg PO BID 10/27/16 11/04/16 traMADol HCL [Ultram] 50 - 100 mg PO Q6HR PRN 10/27/16 11/04/16 traZODone HCL [Desyrel] 300 mg PO HS 10/27/16 11/04/16 Peg 3350-Na Sulf,Bicarb,Cl/KCl 4,000 ml PO ONCE 11/04/16 11/04/16 [Golytely Lavage] Allergies Allergy/AdvReac Type Severity Reaction Status Date / Time Penicillins Allergy Swelling Verified 11/04/16 21:32 Sulfa (Sulfonamide Allergy Swelling Verified 11/04/16 21:32 Antibiotics) tomato Allergy Unknown Verified 11/04/16 21:32 Review of Systems ROS Statement: Those systems with pertinent positive or pertinent negative responses have been documented in the HPI. ROS Other: All systems not noted in ROS Statement are negative. Past Medical History Past Medical History: GERD/Reflux, Hyperlipidemia, Hypertension, Renal Disease Additional Past Medical History / Comment(s): Rell Puente states he has gallstones and is suppose to have his gallbladder removed, past lithium toxicity , CKD stage III B, gastritis, bilateral hands and feet pain and numbness, headaches. History of Any Multi-Drug Resistant Organisms: None Reported Past Surgical History: No Surgical Hx Reported Past Anesthesia/Blood Transfusion Reactions: Motion Sickness Additional Past Anesthesia/Blood Transfusion Reaction / Comment(s): Pt has never had general or spinal anesthesia. Past Psychological History: Anxiety, Bipolar, Depression Additional Psychological History / Comment(s): Pt moved from [place] to [place] in March 2016. He is living with his two teenage sons, one of which has cerebral palsy (high functioning). Pt has been using his wheelchair lately due to not feeling well. Pt drives. There is also a dog and puppy in the home. Smoking Status: Current every day smoker Past Alcohol Use History: None Reported Additional Past Alcohol Use History / Comment(s): Pt states he started smoking in 1979 and is cutting down. He is now less than a pack a day smoker. He also smokes an E-cigarette. Past Drug Use History: None Reported - Past Family History Father Family Medical History: Myocardial Infarction ([place]) Additional Family Medical History / Comment(s): Father of a [place] at the age of 63yrs. Mother Additional Family Medical History / Comment(s): Mother is living. She has a bone density problem. General Exam - General Exam Comments Initial Comments: General: The patient is awake and alert, in moderate distress, pain is 10 over 10 at this point Skin: Skin is warm and dry and no rashes or lesions are noted. Eye: Pupils are equal, round and reactive to light, extra-ocular movements are intact; there is normal conjunctiva bilaterally. Ears, nose, mouth and throat: There are moist mucous membranes and no oral lesions. Neck: The neck is supple, there is no tenderness or JVD. Cardiovascular: There is a regular rate and rhythm. No murmur, rub or gallop is appreciated. Respiratory: To auscultation bilateral, deccrease breath sounds bilaterally Gastrointestinal: He is very tender all over decreased bowel sounds, he is guarding more so on the right side of the belly Back: There is no tenderness to palpation in the midline. There is no obvious deformity. Musculoskeletal: Normal ROM, no tenderness, There is no pedal edema. There is no calf tenderness or swelling. No cords were appreciated. Neurological: CN II-XII intact, Cranial nerves III through XII are intact. There are no obvious motor or sensory deficits. Coordination appears grossly intact. Speech is normal. Psychiatric: Cooperative, appropriate mood & affect, normal judgment. Limitations: no limitations Course Vital Signs 11/04/16 21:00 Temperature 98 F Pulse Rate 95 Respiratory 16 Rate Blood Pressure 134/68 O2 Sat by Pulse 94 L Oximetry I spoke with the Dr. Camejo me spoke with the Dr. Sanchez and her doctor tomorrow and he spoke with the Dr. Mead umbilical ahead and now get older Dr. Mead, the patient already had a Cipro and Flagyl in her neck well will keep her nothing by mouth to make arrangements for the admission Disposition Clinical Impression: Bowel perforation Disposition: ADMITTED IP TO THIS HOSP Condition: Good Referrals: None,Stated [Primary Care Provider] - 1-2 days
[2016-11-04] MEDS ORDERED: MORPHINE SULFATE 10 MG/ML SYRINGE IVP STA (21:56)
[2016-11-04] MEDS ORDERED: ONDANSETRON 4 MG/2 ML VIAL IVP STA (21:57)
[2016-11-04] MEDS ORDERED: ONDANSETRON 4 MG/2 ML VIAL IVP PRN (22:05)
[2016-11-04] MEDS ORDERED: NALOXONE 0.4 MG/ML 1 ML VIAL IV PRN (22:05)
[2016-11-04] MEDS ORDERED: traMADol 50 MG TAB PO PRN (22:10)
[2016-11-04 23:00] VITALS: BMI 27.1
[2016-11-04] MEDS: metroNIDAZOLE-NS PMX 500 MG in SALINE 1 100ML.BAG IVPB SCH (23:13)
[2016-11-05] MEDS: HYDROmorphone 1 MG/ML 1 ML SYRINGE IV PRN ×2 (03:11→08:01)
[2016-11-05] MEDS: metroNIDAZOLE-NS PMX 500 MG in SALINE 1 100ML.BAG IVPB SCH ×2 (07:56→15:08)
[2016-11-05 08:24] LABS: Basophils % (A) 0 %; CH 30.1; CHCM 31.7; Eosinophils # (A) 0.1 k/uL (0-0.7); Eosinophils % (A) 1 %; HGB 11.1 gm/dL (13.0-17.5); Hypochromasia Slight; Luc # (Auto) 0.21; Luc % (Auto) 2; Lymphocytes # (A) 2.8 k/uL (1.0-4.8); Lymphocytes % (A) 23 %; MCH 30.3 pg (25.0-35.0); MCHC 31.8 g/dL (31.0-37.0); MCV 95.4 fL (80.0-100.0); Mean Platelet Volume 7.5; Monocytes # (A) 0.5 k/uL (0-1.0); Monocytes % (A) 4 %; Neutrophils # (A) 8.4 k/uL (1.3-7.7); Neutrophils % (A) 69 %; RBC 3.67 m/uL (4.30-5.90); RDW 15.6 % (11.5-15.5); WBC 12.1 k/uL (3.8-10.6); WBC (Perox) 12.31
[2016-11-05 08:37] LABS: Calcium 8.9 mg/dL (8.4-10.2); Potassium 4.1 mmol/L (3.5-5.1); Total Bilirubin 0.4 mg/dL (0.2-1.3); Total Protein 5.7 g/dL (6.3-8.2)
--- NOTE | 2016-11-05 08:56 | P.CONS ---
History of Present Illness - Reason for Consult Consult date: 11/05/16 Status post colonoscopy Requesting physician: Mavis Grimes - History of Present Illness 46-year-old gentleman underwent colonoscopy in [place] yesterday as part of change in bowel habits abdominal pain and intermittent rectal bleeding. Findings of colonoscopy indicated a 4 cm multilobulated broad-based polyp in the hepatic flexure status post incomplete piecemeal snare polypectomy with Nora ink tattooing. 2 cm cecal polyp status post snare polypectomy. 1 cm transverse colon polyp status post snare polypectomy. 2 cm pedunculated proximal descending colon polyp status post snare polypectomy. 4-5 cm polypoid lesion with a thick peduncle in the proximal descending colon at 50 cm from anal verge status post multiple biopsies and tattooing with Nora ink. 2 polyps in the sigmoid colon measuring 2 cm each not removed. One polyp in the distal sigmoid colon not removed. He developed abdominal pain post procedure. Abdominal x-rays indicated suspected small amount of abnormal air in the right flank which may represented extraperitoneal perforation. CT abdomen and pelvis without IV or oral contrast indicated a small foci of free air noted outside the bowel lumen in the right lower quadrant consistent with perforation of the colon. Chemistries this morning white count 12.1. Hemoglobin 11.1. Reports abdominal discomfort mostly in the right flank right lower quadrant extending to the lower transverse abdomen left lower quadrant. Denies rectal bleeding. Afebrile. Review of Systems Constitutional: Denies fever, chills, sweats, weight gain, or loss. HEENT: Negative for migraines, blurred vision or loss, earaches, drainage, tinnitus, oral mucosal lesions, dysphagia, or odynophagia. Cardiac: Hyperlipidemia. Hypertension. Negative for chest pain, arrhythmias, or palpitation. Respiratory: Nicotine cigarette dependency. Negative for shortness of breath, hemoptysis, cough, or sputum production. Gastrointestinal: See HPI for pertinent findings. Genitourinary: Negative for hematuria, urgency, frequency, polyuria, dysuria, or penile discharge. Musculoskeletal: Camille's disease. Negative for muscle aches, swelling, arthritis, and arthralgias. Neurologic: Negative for stroke or TIA. Chronic numbness in hands and feet. Endocrine: Negative for thyroid problems. Nephrology: Chronic kidney disease stage III. Skin: Negative for rash or itching. Psychiatric: Bipolar depression. All systems: negative (See HPI) Past Medical History Past Medical History: GERD/Reflux, Hyperlipidemia, Hypertension, Renal Disease Additional Past Medical History / Comment(s): Cindi, Pt states he has gallstones and is suppose to have his gallbladder removed, past lithium toxicity , CKD stage III B, gastritis, bilateral hands and feet pain and numbness, headaches. History of Any Multi-Drug Resistant Organisms: None Reported Past Surgical History: No Surgical Hx Reported Past Anesthesia/Blood Transfusion Reactions: Motion Sickness Additional Past Anesthesia/Blood Transfusion Reaction / Comm: Pt has never had general or spinal anesthesia. Past Psychological History: Anxiety, Bipolar, Depression Additional Psychological History / Comment(s): Pt moved from [place] to [place] in March 2016. He is living with his two teenage sons, one of which has cerebral palsy (high functioning). Pt has been using his wheelchair lately due to not feeling well. Pt drives. There is also a dog and puppy in the home. Smoking Status: Current every day smoker Past Alcohol Use History: None Reported Additional Past Alcohol Use History / Comment(s): Pt states he started smoking in 1979 and is cutting down. He is now less than a pack a day smoker. He also smokes an E-cigarette. Past Drug Use History: None Reported - Past Family History Father Family Medical History: Myocardial Infarction (SD) Additional Family Medical History / Comment(s): Father of a SD at the age of 63yrs. Mother Family Medical History: No Reported History Additional Family Medical History / Comment(s): Mother is living. She has a bone density problem. Medications and Allergies Home Medications Medication Instructions Recorded Confirmed Type Cyclobenzaprine HCl 5 mg PO TID 10/27/16 11/08/16 History Escitalopram Oxalate [Lexapro] 40 mg PO DAILY 10/27/16 11/08/16 History Esomeprazole Magnesium [NexIUM] 40 mg PO DAILY 10/27/16 11/08/16 History Lisinopril [Zestril] 5 mg PO DAILY 10/27/16 11/08/16 History QUEtiapine [SEROquel] 200 mg PO DAILY 10/27/16 11/08/16 History QUEtiapine [SEROquel] 800 mg PO HS 10/27/16 11/08/16 History Rosuvastatin [Crestor] 20 mg PO DAILY 10/27/16 11/08/16 History busPIRone HCL 10 mg PO BID 10/27/16 11/08/16 History traMADol HCL [Ultram] 50 - 100 mg PO Q6HR PRN 10/27/16 11/08/16 History traZODone HCL [Desyrel] 300 mg PO HS 10/27/16 11/08/16 History Allergies Allergy/AdvReac Type Severity Reaction Status Date / Time Penicillins Allergy Swelling Verified 11/08/16 15:17 Sulfa (Sulfonamide Allergy Swelling Verified 11/08/16 15:17 Antibiotics) tomato Allergy Unknown Verified 11/08/16 15:17 Physical Exam Vitals: Vital Signs Temp Pulse Resp BP Pulse Ox 11/05/16 07:00 98 F 80 14 99/63 96 11/05/16 04:00 78 11/05/16 02:34 97.5 F L 78 19 97/52 98 11/04/16 23:42 97.3 F L 89 18 106/67 Intake and Output 11/04/16 11/05/16 11/05/16 22:59 06:59 14:59 Intake Total 140 Balance 140 Intake: Intake, IV Titration 140 Amount Ciprofloxacin/Dextrose 40 Pmx 400 mg In Dextrose/ Water 1 200ml.bag @ 200 mls/hr IVPB Q12HR [facility] Rx# :[id number] metroNIDAZOLE-NS PMX 500 100 mg In Saline 1 100ml.bag @ 100 mls/hr IVPB Q8HR [facility] Rx#:[id number] Other: Voiding Method Toilet Weight 88.451 kg General appearance: The patient is alert, oriented, in no acute distress. HET: Head is normocephalic and atraumatic. Pupils are equal and reactive. Oropharynx is clear without lesions. Neck: Supple without lymphadenopathy. Trachea midline. Heart: S1 S2. Regular rate and rhythm. Lungs: No crackles or wheezes are heard. Abdomen: Soft, tenderness to the right flank right lower quadrant extending across lower transverse abdomen left lower quadrant, nondistended with bowel sounds. No peritoneal signs. No palpable organomegaly or masses. Extremities: Normal skin color and turgor. No cyanosis, rash, ulceration, clubbing, or edema. Radial and pedal pulses are 2/4 bilaterally. Neurological: No focal deficits. Strength and sensation are grossly intact. Results CBC & Chem 7: 03/26/17 07:05 11/07/16 07:05 Labs: Abnormal Lab Results - Last 24 Hours (Table) 11/05/16 11/05/16 Range/Units 07:26 07:26 WBC 12.1 H (3.8-10.6) k/uL RBC 3.67 L (4.30-5.90) m/uL Hgb 11.1 L (13.0-17.5) gm/dL Hct 35.0 L (39.0-53.0) % RDW 15.6 H (11.5-15.5) % Neutrophils # 8.4 H (1.3-7.7) k/uL Chloride 113 H (98-107) mmol/L Creatinine 1.98 H (0.66-1.25) mg/dL AST 15 L (17-59) U/L Total Protein 5.7 L (6.3-8.2) g/dL Albumin 3.3 L (3.5-5.0) g/dL Assessment and Plan (1) Abdominal pain Narrative/Plan: 46-year-old male status post colonoscopy with findings of multiple colonic polyps in the cecum, hepatic flexure/transverse colon, and sigmoid with snare polypectomy, incomplete piecemeal removal with Nora ink tattooing. Post- colonoscopy abdominal pain secondary to small foci of localized extra peritoneal free air in the right lower quadrant. Status: Acute (2) Status post colonoscopy with polypectomy Status: Acute Plan: 1. Nothing by mouth. Abdominal xrays. 2. Surgical evaluation. Further recommendations management per surgical service. 3. IV antibiotics. 4. Supportive measures GI DVT prophylaxis. Assessment and plan a care discussed with Dr. Alcantar.
[2016-11-05] MEDS ORDERED: QUEtiapine 200 MG TAB PO SCH (09:00)
[2016-11-05] MEDS: CIPROFLOXACIN/DEXTROSE PMX 400 MG in DEXTROSE/WATER 1 200ML.BAG IVPB SCH ×2 (09:18→22:22)
[2016-11-05] MEDS: ATORVASTATIN 40 MG TAB PO SCH ×2 (09:29→15:09)
[2016-11-05] MEDS: busPIRone HCl 10 MG TAB PO SCH ×3 (09:29→22:17)
[2016-11-05] MEDS: CYCLOBENZAPRINE 5 MG TAB PO SCH ×3 (09:29→22:20)
[2016-11-05] MEDS: QUEtiapine 200 MG TAB PO SCH (09:29)
[2016-11-05] MEDS: ESCITALOPRAM 20 MG TAB PO SCH ×2 (09:29→15:10)
[2016-11-05] MEDS: LISINOPRIL 5 MG TAB PO SCH (09:29)
[2016-11-05] MEDS ORDERED: PANTOPRAZOLE 40 MG/10 ML VIAL IVP SCH (10:15)
--- NOTE | 2016-11-05 10:24 | P.GSHP ---
<Jeannette Gross - Last Filed: 11/05/16 09:52> History of Present Illness H&P Date: 11/05/16 Chief Complaint: Abdominal pain status post colonoscopy This is a 46-year-old who was transferred from [facility] on 04 November after patient had undergone a colonoscopy with snare polypectomy per Dr. Sanchez post procedure patient developed abdominal pain. Abdominal x-rays were obtained given the history of the patient developing severe year abdominal pain after the colonoscopy. Initially the x-rays performed did not show any evidence of any free air there was a concern for perforation the patient did have a stat CAT scan of the abdomen and pelvis without IV or oral contrast which did indicate there was a small foci of free air noted outside of the bowel lumen in the right lower quadrant consistent with perforation of the colon given the above clinical presentation was transferred to [facility] emergency room and admitted to the surgical service Dr. thomas This 46-year-old gentleman was just discharged on the 28 of October from [facility] at that time the patient was being worked up for severe diarrhea and abdominal pain. That hospitalization the patient had a CAT scan of the abdomen pelvis done did show gallstones the last admission surgical service did discuss with the patient the CAT scan of the abdomen and pelvis showing the gallstones once the bowel issue was worked up the gallbladder would need to be addressed for possible cholecystectomy diarrhea was self-limiting and resolved. Given the change in the bowel habit history for the last 6 months at that admission patient was advised that he would need a colonoscopy to workup alternating diarrhea and constipation issues. Additionally patient at that time had reportedly been experiencing intermittent rectal bleeding that it ongoing for the last several weeks. Patient was stabilized that admission and discharged and set up to have the colonoscopy done by Dr. Sanchez and the [place] facility. The colonoscopy report reviewed indicates findings showed multiple polyps in the colon. Additionally patient had a snare polypectomy 2 cm cecal polyp 1 cm transverse colon and a 2 cm descending colon polyp in the 4-5 cm polypoid lesion with a thick peduncle in the proximal descending colon multiple biopsies were obtained to polyps in the sigmoid colon measuring 2 cm were not removed and one polyp in the distal sigmoid colon not removed Patients being seen currently is resting comfortably in bed had just received pain medication there soft tenderness to the right flank right lower quadrant extends across to the left lower quadrant bowel tones are present patient does not appear in any acute distress and states his abdominal pain feels slightly improved but continues to have tenderness no nausea no vomiting the labs were reviewed the white count on admission 12.1 and hemoglobin 11.1 the hemoglobin and October 27 was 12.5 the creatinine is elevated to 1.9 which is down from a creatinine 2.1 on October 27 - Review of Systems Comment: Essentially unremarkable except as mentioned in the present illness Past Medical History Past Medical History: GERD/Reflux, Hyperlipidemia, Hypertension, Renal Disease Additional Past Medical History / Comment(s): Cindi Pt states he has gallstones and is suppose to have his gallbladder removed, past lithium toxicity , CKD stage III B, gastritis, bilateral hands and feet pain and numbness, headaches. History of Any Multi-Drug Resistant Organisms: None Reported Past Surgical History: No Surgical Hx Reported Past Anesthesia/Blood Transfusion Reactions: Motion Sickness Additional Past Anesthesia/Blood Transfusion Reaction / Comment(s): Pt has never had general or spinal anesthesia. Past Psychological History: Anxiety, Bipolar, Depression Additional Psychological History / Comment(s): Pt moved from [place] to [place] in March 2016. He is living with his two teenage sons, one of which has cerebral palsy (high functioning). Pt has been using his wheelchair lately due to not feeling well. Pt drives. There is also a dog and puppy in the home. Smoking Status: Current every day smoker Past Alcohol Use History: None Reported Additional Past Alcohol Use History / Comment(s): Pt states he started smoking in 1979 and is cutting down. He is now less than a pack a day smoker. He also smokes an E-cigarette. Past Drug Use History: None Reported - Past Family History Father Family Medical History: Myocardial Infarction (GA) Additional Family Medical History / Comment(s): Father of a GA at the age of 63yrs. Mother Family Medical History: No Reported History Additional Family Medical History / Comment(s): Mother is living. She has a bone density problem. Medications and Allergies Home Medications Medication Instructions Recorded Confirmed Type Cyclobenzaprine HCl 5 mg PO TID 10/27/16 11/04/16 History Escitalopram Oxalate [Lexapro] 40 mg PO DAILY 10/27/16 11/04/16 History Esomeprazole Magnesium [NexIUM] 40 mg PO DAILY 10/27/16 11/04/16 History Lisinopril [Zestril] 5 mg PO DAILY 10/27/16 11/04/16 History QUEtiapine [SEROquel] 200 mg PO DAILY 10/27/16 11/04/16 History QUEtiapine [SEROquel] 800 mg PO HS 10/27/16 11/04/16 History Rosuvastatin [Crestor] 20 mg PO DAILY 10/27/16 11/04/16 History busPIRone HCL 10 mg PO BID 10/27/16 11/04/16 History traMADol HCL [Ultram] 50 - 100 mg PO Q6HR PRN 10/27/16 11/04/16 History traZODone HCL [Desyrel] 300 mg PO HS 10/27/16 11/04/16 History Peg 3350-Na Sulf,Bicarb,Cl/KCl 4,000 ml PO ONCE 11/04/16 11/04/16 History [Golytely Lavage] Allergies Allergy/AdvReac Type Severity Reaction Status Date / Time Penicillins Allergy Swelling Verified 11/04/16 21:32 Sulfa (Sulfonamide Allergy Swelling Verified 11/04/16 21:32 Antibiotics) tomato Allergy Unknown Verified 11/04/16 21:32 Surgical - Exam Vital Signs Temp Pulse Resp BP Pulse Ox 98 F 95 16 134/68 94 L 11/04/16 21:00 11/04/16 21:00 11/04/16 21:00 11/04/16 21:00 11/04/16 21:00 GENERAL APPEARANCE: 46-year-old male 3 patient is alert, oriented, in no acute distress. VITAL SIGNS: Reviewed afebrile HEENT: Head is normocephalic and atraumatic. Pupils are equal and reactive. The nares are patent. Oropharynx is clear without lesions. NECK: Supple without lymphadenopathy. Traches midline. HEART: S1, S2. Regular rate and rhythm. Denying chest pain no murmur LUNGS: No crackles or wheezes are heard. Adequate air movement bilaterally on room air ABDOMEN: Soft, tenderness to the right flank area and radiates across the lower abdominal wall to the left lower quadrant, nondistended with good bowel sounds. No peritoneal signs. No palpable organomegaly or masses. States no stool reports no nausea vomiting EXTREMITIES: Normal skin color and turgor. No cyanosis, rash, multiple skin tattoos ulceration, clubbing or edema. Radial pedal pulses are 2/4 bilaterally. NEUROLOGICAL: No focal deficits. Strength and sensation are grossly intact. Results - Labs 11/05/16 07:26 11/05/16 07:26 Abnormal Lab Results - Last 24 Hours (Table) 11/05/16 11/05/16 Range/Units 07:26 07:26 WBC 12.1 H (3.8-10.6) k/uL RBC 3.67 L (4.30-5.90) m/uL Hgb 11.1 L (13.0-17.5) gm/dL Hct 35.0 L (39.0-53.0) % RDW 15.6 H (11.5-15.5) % Neutrophils # 8.4 H (1.3-7.7) k/uL Chloride 113 H (98-107) mmol/L Creatinine 1.98 H (0.66-1.25) mg/dL AST 15 L (17-59) U/L Total Protein 5.7 L (6.3-8.2) g/dL Albumin 3.3 L (3.5-5.0) g/dL Diabetes panel 11/05/16 Range/Units 07:26 Sodium 145 (137-145) mmol/L Potassium 4.1 (3.5-5.1) mmol/L Chloride 113 H (98-107) mmol/L Carbon Dioxide 22 (22-30) mmol/L BUN 10 (9-20) mg/dL Creatinine 1.98 H (0.66-1.25) mg/dL Glucose 76 (74-99) mg/dL Calcium 8.9 (8.4-10.2) mg/dL AST 15 L (17-59) U/L ALT 23 (21-72) U/L Alkaline Phosphatase 96 (38-126) U/L Total Protein 5.7 L (6.3-8.2) g/dL Albumin 3.3 L (3.5-5.0) g/dL Calcium panel 11/05/16 Range/Units 07:26 Calcium 8.9 (8.4-10.2) mg/dL Albumin 3.3 L (3.5-5.0) g/dL Pituitary panel 11/05/16 Range/Units 07:26 Sodium 145 (137-145) mmol/L Potassium 4.1 (3.5-5.1) mmol/L Chloride 113 H (98-107) mmol/L Carbon Dioxide 22 (22-30) mmol/L BUN 10 (9-20) mg/dL Creatinine 1.98 H (0.66-1.25) mg/dL Glucose 76 (74-99) mg/dL Calcium 8.9 (8.4-10.2) mg/dL Adrenal panel 11/05/16 Range/Units 07:26 Sodium 145 (137-145) mmol/L Potassium 4.1 (3.5-5.1) mmol/L Chloride 113 H (98-107) mmol/L Carbon Dioxide 22 (22-30) mmol/L BUN 10 (9-20) mg/dL Creatinine 1.98 H (0.66-1.25) mg/dL Glucose 76 (74-99) mg/dL Calcium 8.9 (8.4-10.2) mg/dL Total Bilirubin 0.4 (0.2-1.3) mg/dL AST 15 L (17-59) U/L ALT 23 (21-72) U/L Alkaline Phosphatase 96 (38-126) U/L Total Protein 5.7 L (6.3-8.2) g/dL Albumin 3.3 L (3.5-5.0) g/dL Assessment and Plan Plan: Impression Present on admission abdominal pain status post colonoscopy with polypectomy Present on admission abdominal pain likely due to CAT scan of the abdomen and pelvis suggestive of small amount of free air microperforation in the right lower quadrant Ultrasound of the abdomen and pelvis done on October 27 showed cholelithiasis with a stone in the neck of the gallbladder Bipolar type I disorder Current every day smoker Present on admission leukocytosis suspect reactive Present on admission acute renal failure suspect due to hypovolemia dehydration Chronic kidney disease stage III Plan Continue the IV antibiotics Cipro and Flagyl as ordered Pain control Repeat labs in the morning DVT and GI prophylaxis IV hydration Consult medical service for medical management Further recommendations pending Follow-up on pending abdominal x-rays The above dictated assessment and findings were discussed with Ofelia. Impression and the plan of care have been dictated as directed. Jeannette Gross nurse practitioner acting as a scribe for Ofelia <Mavis Thomas - Last Filed: 11/05/16 14:34> - Review of Systems Comment: CONSTITUTIONAL: Denies any fever or chills. Denies recent weight loss or weight gain. HEENT: Denies any trouble with vision, hearing or nosebleeds. No difficulty swallowing. LYMPHATIC: The patient denies any lumps and bumps around the neck. ENDOCRINE: Denies any thyroid disorders. Denies any blood sugar glucose intolerance. RESPIRATORY: Denies pneumonia. Denies any troubles with breathing or dyspnea on exertion. CARDIOVASCULAR: Denies any chest pain, palpitations, or recent heart attacks. GASTROINTESTINAL: Has heart burn. Had a recent colonoscopy. No bright red blood per rectum. GENITOURINARY: Denies any blood in urine or increased urinary frequency. Has chronic kidney disease stage III. MUSCULOSKELETAL: Has back pain, stiffness or joint arthritis. NEUROLOGIC: Has occassional numbness or tingling along the distal extremities. No seizure disorders or headaches. PSYCHIATRIC: Has depression. No suidical ideation. HEMATOLOGIC: Denies any abnormal bleeding or bruising. BREASTS: Denies any breast lumps, pain or nipple discharge. Surgical - Exam Vital Signs Temp Pulse Resp BP Pulse Ox 98 F 95 16 134/68 94 L 11/04/16 21:00 11/04/16 21:00 11/04/16 21:00 11/04/16 21:00 11/04/16 21:00 ABDOMEN: No rigidity or guarding identified of the abdomen with tenderness along the right lower abdomen and left lower abdomen. Results - Labs 11/05/16 07:26 11/05/16 07:26 Abnormal Lab Results - Last 24 Hours (Table) 11/05/16 11/05/16 Range/Units 07:26 07:26 WBC 12.1 H (3.8-10.6) k/uL RBC 3.67 L (4.30-5.90) m/uL Hgb 11.1 L (13.0-17.5) gm/dL Hct 35.0 L (39.0-53.0) % RDW 15.6 H (11.5-15.5) % Neutrophils # 8.4 H (1.3-7.7) k/uL Chloride 113 H (98-107) mmol/L Creatinine 1.98 H (0.66-1.25) mg/dL AST 15 L (17-59) U/L Total Protein 5.7 L (6.3-8.2) g/dL Albumin 3.3 L (3.5-5.0) g/dL Diabetes panel 11/05/16 Range/Units 07:26 Sodium 145 (137-145) mmol/L Potassium 4.1 (3.5-5.1) mmol/L Chloride 113 H (98-107) mmol/L Carbon Dioxide 22 (22-30) mmol/L BUN 10 (9-20) mg/dL Creatinine 1.98 H (0.66-1.25) mg/dL Glucose 76 (74-99) mg/dL Calcium 8.9 (8.4-10.2) mg/dL AST 15 L (17-59) U/L ALT 23 (21-72) U/L Alkaline Phosphatase 96 (38-126) U/L Total Protein 5.7 L (6.3-8.2) g/dL Albumin 3.3 L (3.5-5.0) g/dL Calcium panel 11/05/16 Range/Units 07:26 Calcium 8.9 (8.4-10.2) mg/dL Albumin 3.3 L (3.5-5.0) g/dL Pituitary panel 11/05/16 Range/Units 07:26 Sodium 145 (137-145) mmol/L Potassium 4.1 (3.5-5.1) mmol/L Chloride 113 H (98-107) mmol/L Carbon Dioxide 22 (22-30) mmol/L BUN 10 (9-20) mg/dL Creatinine 1.98 H (0.66-1.25) mg/dL Glucose 76 (74-99) mg/dL Calcium 8.9 (8.4-10.2) mg/dL Adrenal panel 11/05/16 Range/Units 07:26 Sodium 145 (137-145) mmol/L Potassium 4.1 (3.5-5.1) mmol/L Chloride 113 H (98-107) mmol/L Carbon Dioxide 22 (22-30) mmol/L BUN 10 (9-20) mg/dL Creatinine 1.98 H (0.66-1.25) mg/dL Glucose 76 (74-99) mg/dL Calcium 8.9 (8.4-10.2) mg/dL Total Bilirubin 0.4 (0.2-1.3) mg/dL AST 15 L (17-59) U/L ALT 23 (21-72) U/L Alkaline Phosphatase 96 (38-126) U/L Total Protein 5.7 L (6.3-8.2) g/dL Albumin 3.3 L (3.5-5.0) g/dL - Imaging Abdominal x-ray: report reviewed (Imaging reviewed demonstrating improvement of previous pneumatosis coli 1 week ago. Also no evidence of pneumoperitoneum identified on plain films.), image reviewed CT scan - abdomen: report reviewed, image reviewed CT scan - pelvis: report reviewed, image reviewed Assessment and Plan (1) Hypertensive heart and chronic kidney disease stage 3 Status: Chronic (2) Right flank pain Status: Acute (3) Depression Status: Chronic (4) Bowel perforation Status: Acute (5) Status post colonoscopy with polypectomy Status: Acute (6) Camille disease Status: Chronic (7) Cholelithiasis Status: Chronic Plan: Please see above. 1. Patient was seen and evaluated. Above findings also discussed with Dr. Donny Alcantar. 2. Abdominal x-ray was reviewed demonstrating no evidence of pneumoperitoneum. 3. I personally reviewed his outside computed tomography scan demonstrating improvement of his previous pneumatosis coli of the ascending colon. 4. Recommend continued objective studies including abdominal x-ray and possibly repeat CT of the abdomen and pelvis. 5. Continue with antibiotics. 6. Should his clinical course decline, recommend repeat imaging however surgical intervention will likely include definitive operation of a subtotal colectomy with his history of high risk colon polyps throughout the colon.
[2016-11-05] MEDS: PANTOPRAZOLE 40 MG/10 ML VIAL IV SCH (10:50)
[2016-11-05] MEDS: SODIUM CHLORIDE 0.9% 1,000 ML IV SCH ×2 (10:51→15:17)
--- NOTE | 2016-11-05 10:56 | XR ---
EXAMINATION TYPE: XR abdomen complete w decub DATE OF EXAM: 11/05/2016 10:46 AM COMPARISON: Prior abdomen and CT abdomen 04 November 2016 from outside institution abdomen film 28 October 2016 HISTORY: Status post colonoscopy, evaluate for free air, right flank pain TECHNIQUE: Supine, upright, and left side down lateral decubitus views of the abdomen are obtained. FINDINGS: There is no evidence for pneumoperitoneum. Air-filled loops of colon and small bowel are present. No sizeable air fluid levels. No mass effects are seen. Colonic interposition anterior to the liver. No unusual calcifications. IMPRESSION: Postprocedural findings. Follow-up as indicated.
--- NOTE | 2016-11-05 15:25 | P.PN ---
Progress Note - Text Patient reevaluated. Otherwise he is comfortable. Abdominal pain is stable. May start liquid diet.
--- NOTE | 2016-11-05 21:24 | CONS ---
DATE OF CONSULTATION: 11/05/2016 REASON FOR CONSULTATION: Advice regarding gastroesophageal reflux disease, hypertension and other multiple medical issues requested by Dr. Grimes. HISTORY OF PRESENT ILLNESS: This 46-year-old gentleman with a past medical history of multiple medical problems including, GERD, hypertension, hyperlipidemia, history of Clive's disease, history of chronic kidney disease Stage III, lithium intoxication, anxiety, bipolar depression, being followed by primary care physician elsewhere was admitted recently with abdominal pain and acute cholelithiasis. Dr. Huston saw the patient. The patient also had pneumatosis coli. The patient underwent outpatient colonoscopy in [facility]. After the colonoscopy the patient had abdominal pain. The patient had air under the diaphragm was suspected. Dr. Grimes evaluated the patient and possibly a small amount of microperforation of the right lower quadrant was suspected. The patient was admitted for further evaluation and treatment. The abdomen is soft and conservative line of management is being continued at this time. White count is 12.1. WBC 11.1. There is no history of any fever, rigors or chills. No history of headache, loss of consciousness or seizures. PAST MEDICAL HISTORY: History of GERD, hypertension, hyperlipidemia, history of Camille's Chorea, history of gallstones, history of anxiety, bipolar depression. Medications prior to admission are: 1. Trazodone 300 mg q.h.s. 2. Ultram 50/200 mg q.6h p.r.n. 3. Buspirone 10 mg p.o. b.i.d. 4. Crestor 10 mg p.o. daily. 5. Seroquel 800 mg q.h.s. 200 mg p.o. daily. 6. GoLYTELY 4000 p.o. once. 7. Zestril 5 mg p.o. daily. 8. Nexium 40 mg p.o. daily. 9. Lexapro 40 mg p.o. daily. 10. Cyclobenzaprine 5 mg t.i.d. ALLERGIES: PENICILLIN, SULFA, TRIMETHOPRIM. Family history of myocardial infarction. SOCIAL HISTORY: History of smoking on a current basis. No history of alcohol. REVIEW OF SYSTEMS: ENT: No diminished vision. No diminished hearing. CARDIOVASCULAR: As mentioned earlier. RESPIRATORY: As mentioned earlier. GI: As mentioned earlier. : No dysuria. Nervous system: No numbness, weakness. ALLERGY/IMMUNOLOGY: No asthma or hayfever. MUSCULOSKELETAL: As mentioned earlier. HEMATOLOGY/ONCOLOGY: No history of anemia. ENDOCRINE: No history of diabetes, hypothyroidism. CONSTITUTIONAL: As mentioned earlier. DERMATOLOGY: Negative. RHEUMATOLOGY: Negative. PSYCHIATRY: As mentioned earlier. PHYSICAL EXAMINATION: The patient is alert and oriented x2. Pulse is 80, blood pressure 99/60. Respiratory rate 14, temperature 97.4, pulse ox 97% on 2 L. HEENT: Conjunctivae normal. Oral mucosa moist. NECK: No jugular venous distention. No carotid bruit. No lymph node enlargement. CARDIOVASCULAR: S1, S2 muffled. RESPIRATORY: Breath sounds diminished at the bases. A few scattered rhonchi. No crackles. ABDOMEN: Soft, mild diffuse distention. Otherwise, no guarding. No rigidity. No mass palpable. No ascites. Bowel sounds diminished. LEGS: No edema. No swelling. Nervous system: Higher function as mentioned. Moves all four limbs. No focal motor or sensory deficits. SKIN: No ulcer, rash or bleeding. LYMPHATICS: No lymph nodes palpable in the neck, axillae or groin. JOINTS: No active deforming arthropathy. LABS: WBC 12.7, hemoglobin 11.1, creatinine is 1.98. ASSESSMENT: 1. Abdominal pain, status post colonoscopy, possibly small amount of free air, with microperforation in the right lower quadrant. 2. History of recent colonoscopy and polypectomy. 3. History of acute cholelithiasis on the recent ultrasound. 4. Pneumatosis coli in the recent studies. 5. Increased WBC. 6. Anemia, normocytic. 7. Increased creatinine with mild acute renal failure, possible prerenal with dehydration, present on admission. 8. History of gastroesophageal reflux disease. 9. Hypertension, essential. 10. Hyperlipidemia. 11. History of Clive's disease. 12. Chronic kidney disease stage III. 13. History of lithium toxicity. 14. Anxiety, bipolar depression. 15. Remote history of nicotine dependence. 16. FULL CODE. RECOMMENDATIONS AND DISCUSSION: In this 46-year-old gentleman who presented with multiple complex medical issues, we will monitor the patient closely, continue current medications, continue symptomatic treatment. I recommend continue with DVT prophylaxis. Otherwise, the patient is being planned to be started on clear liquids. I would recommend repeat labs and resume the home medications including the psych medication and follow the patient closely with you. Broad-spectrum IV antibiotics. Thank you Dr. Grimes for letting us participate in the care of this patient.
[2016-11-05] MEDS: QUEtiapine 400 MG TAB PO SCH (22:18)
[2016-11-05] MEDS: traZODone HCL 100 MG TAB PO SCH (22:19)
[2016-11-06 07:32] LABS: Basophils % (A) 0 %; CH 29.3; CHCM 30.8; Eosinophils # (A) 0.1 k/uL (0-0.7); Eosinophils % (A) 2 %; HCT 30.9 % (39.0-53.0); HDW 2.69; HGB 9.8 gm/dL (13.0-17.5); Hypochromasia Moderate; Luc # (Auto) 0.12; Luc % (Auto) 2; Lymphocytes # (A) 2.9 k/uL (1.0-4.8); Lymphocytes % (A) 41 %; MCH 30.1 pg (25.0-35.0); MCHC 31.6 g/dL (31.0-37.0); MCV 95.3 fL (80.0-100.0); Mean Platelet Volume 6.5; Monocytes # (A) 0.4 k/uL (0-1.0); Monocytes % (A) 5 %; Neutrophils # (A) 3.6 k/uL (1.3-7.7); Neutrophils % (A) 50 %; RBC 3.25 m/uL (4.30-5.90); RDW 15.4 % (11.5-15.5); WBC 7.2 k/uL (3.8-10.6)
[2016-11-06 07:52] LABS: Calcium 8.1 mg/dL (8.4-10.2); Potassium 3.8 mmol/L (3.5-5.1)
[2016-11-06] MEDS ORDERED: SODIUM CHLORIDE 0.9% 500 ML IV ONE (08:22)
[2016-11-06] MEDS: ESCITALOPRAM 20 MG TAB PO SCH (09:13)
[2016-11-06] MEDS: CYCLOBENZAPRINE 5 MG TAB PO SCH ×3 (09:13→21:42)
[2016-11-06] MEDS: CIPROFLOXACIN/DEXTROSE PMX 400 MG in DEXTROSE/WATER 1 200ML.BAG IVPB SCH ×2 (09:13→21:38)
[2016-11-06] MEDS: PANTOPRAZOLE 40 MG/10 ML VIAL IV SCH (09:13)
[2016-11-06] MEDS: ATORVASTATIN 40 MG TAB PO SCH (09:15)
[2016-11-06] MEDS: busPIRone HCl 10 MG TAB PO SCH ×2 (09:15→21:37)
[2016-11-06] MEDS: QUEtiapine 200 MG TAB PO SCH (09:16)
[2016-11-06] MEDS: SODIUM CHLORIDE 0.9% 1,000 ML IV SCH ×3 (09:26→12:33)
[2016-11-06] MEDS: LISINOPRIL 5 MG TAB PO SCH (11:25)
--- NOTE | 2016-11-06 12:25 | PN ---
DATE OF SERVICE: 11/06/2016 Patient is a 46-year-old pleasant, white male who was admitted to the hospital post colonoscopy for severe abdominal pain. He had a colonoscopy at [facility] on November 04, and was noted to have multiple large colon polyps. Some of which were removed. Following the colonoscopy he had some abdominal pain. A CAT scan of the abdomen was done, which showed a small focus of free air in the right lower quadrant and because of possible perforation, he was transferred to [facility]. He was seen by Dr. Grimes and at this time the plan is to continue with IV antibiotics and conservative approach. This morning the patient states that he is feeling much better. The abdominal pain is resolving. He has no nausea or vomiting. He was started on clear liquid diet, tolerating well. On physical examination, appears comfortable in no apparent distress. Vital signs are stable. Blood pressure is 83/58, pulse rate 90, temperature 98.9. HEENT EXAMINATION: Unremarkable. Conjunctivae pink. Sclerae anicteric. Oral cavity, no lesions. NECK: No JVD or lymph node enlargement. Chest was clear to auscultation. HEART: Regular rate and rhythm. ABDOMEN: Soft. There was some tenderness in the right lower quadrant and right upper quadrant area, but the rest of the abdomen benign. Bowel sounds are positive. No organomegaly. EXTREMITIES: No pedal edema. SKIN: No rashes. NEURO: He is alert and oriented x3. No focal deficits. Labs from today, WBC 7.2, hemoglobin 9.8, and platelets normal. BUN 11, creatinine 1.99. IMPRESSION: 1. Abdominal pain status post colonoscopy CAT scan showed a small focus of free in the right lower quadrant possible microperforation. Patient is presently on IV antibiotics and doing well. Dr. Grimes from surgery has evaluated the patient and the plan is to continue with conservative approach. 2. Leukocytosis has resolved and abdominal pain has significantly improved. 3. Multiple colon polyps on recent colonoscopy, he had a large 3 to 4 cm polyp in the hepatic flexure that was removed with piece meal snare polypectomy and multiple other polyps removed and in the distal descending colon there was another 4 cm polyp that was not removed. 4. Right flank pain is gradually improving. RECOMMENDATIONS: 1. We will continue with the current plan. 2. Continue with clear liquids. 3. Continue with broad-spectrum antibiotics. 4. Await further recommendations from surgery. 5. Will follow him closely during his hospital stay.
[2016-11-06] MEDS: metroNIDAZOLE-NS PMX 500 MG in SALINE 1 100ML.BAG IVPB SCH ×4 (12:29→23:15)
--- NOTE | 2016-11-06 12:54 | P.PN ---
Subjective The patient is a 46-year-old gentleman transferred from [facility] on November 04 after having undergone a colonoscopy with snare polypectomy. He developed abdominal pain and CAT scan revealed a question of a small focus of free air outside the bowel lumen and the right lower quadrant consistent with a microperforation. The patient has been treated conservatively with IV antibiotics with no abdominal pain at this time. Earlier today was called with the patient's blood pressure had dropped into the 70s. The patient was given a fluid bolus and his blood pressure systolic and back up into the 90s. His hemoglobin is 9.8. He has no increased abdominal pain. Objective - Vital Signs Vital signs: Vital Signs Temp 98.9 F 11/06/16 07:50 Pulse 90 11/06/16 07:50 Resp 15 11/06/16 08:00 BP 90/58 11/06/16 12:29 Pulse Ox 91 L 11/06/16 08:58 Intake & Output 11/05/16 11/06/16 11/06/16 18:59 06:59 18:59 Intake Total 800 1675 1520 Balance 800 1675 1520 Weight 88.451 kg 88.451 kg Intake: Intake, IV Titration 600 1675 920 Amount Ciprofloxacin/Dextrose 200 Pmx 400 mg In Dextrose/ Water 1 200ml.bag @ 200 mls/hr IVPB Q12HR [facility] Rx# :[id number] Sodium Chloride 0.9% 1, 600 1675 120 000 ml @ 120 mls/hr IV . Q8H20M [facility] Rx#:[id number] Sodium Chloride 0.9% 500 500 ml @ 999 mls/hr IV .Q31M [facility] Rx#:[id number] metroNIDAZOLE-NS PMX 500 100 mg In Saline 1 100ml.bag @ 100 mls/hr IVPB Q8HR [facility] Rx#:[id number] Oral 200 600 Other: Voiding Method Toilet Toilet # Voids 1 1 1 - Constitutional General appearance: Present: average body habitus, no acute distress - Respiratory Respiratory: bilateral: CTA - Cardiovascular Rhythm: regular - Gastrointestinal Gastrointestinal Comment(s): No guarding or rebound General gastrointestinal: Present: soft - Labs CBC & Chem 7: 11/06/16 07:05 11/06/16 07:05 Labs: Abnormal Lab Results - Last 24 Hours (Table) 11/06/16 11/06/16 Range/Units 07:05 07:05 RBC 3.25 L (4.30-5.90) m/uL Hgb 9.8 L (13.0-17.5) gm/dL Hct 30.9 L (39.0-53.0) % Chloride 115 H (98-107) mmol/L Carbon Dioxide 21 L (22-30) mmol/L Creatinine 1.99 H (0.66-1.25) mg/dL Calcium 8.1 L (8.4-10.2) mg/dL Assessment and Plan Plan: Impression/plan: 1. 36-year-old white male with microperforation following colonoscopy stable from a surgical standpoint, may advance diet as tolerated 2. Hypotension which appears to have resolved. Follow up with medicine
[2016-11-06 20:32] LABS: Calcium 7.9 mg/dL (8.4-10.2); Potassium 3.7 mmol/L (3.5-5.1); Total Bilirubin 0.3 mg/dL (0.2-1.3); Total Protein 4.7 g/dL (6.3-8.2)
[2016-11-06] MEDS: QUEtiapine 400 MG TAB PO SCH (21:41)
[2016-11-06] MEDS: traZODone HCL 100 MG TAB PO SCH (21:41)
--- NOTE | 2016-11-06 23:06 | PN ---
DATE OF SERVICE: 11/06/2016 This 46-year-old gentleman who was admitted with abdominal pain and a colonoscopy also suspected to have microperforation. The patient is on conservative line of treatment. The patient is feeling much better. Surgery is following the patient closely. Conservative line of management is noted. Surgery has recommended to advance diet cautiously. The patient has relative hypotension. On exam, alert and oriented x3. Pulse 99, blood pressure 89/42, respiratory rate 17, temperature 98.4, pulse ox 99% on room air. HEENT: Conjunctivae normal. NECK: No jugular venous distention. CARDIOVASCULAR: S1, S2 muffled. RESPIRATORY: Breath sounds diminished at the bases. REVIEW OF SYSTEMS: CARDIOVASCULAR: No angina. RESPIRATORY: As mentioned earlier. GASTROINTESTINAL: As mentioned earlier. GENITOURINARY: No dysuria Medications are reviewed and include: 1. Lipitor 40 mg daily. 2. Buspar 10 mg b.i.d. 3. Cipro 500 mg b.i.d. 4. Flexeril 5 mg p.o. t.i.d. 5. Dilaudid 1 mg q.3 p.r.n. 6. Lexapro. 7. Flagyl 500 mg q.8h. 8. Narcan. 9. Zofran. 10. Protonix. 11. Seroquel. 12. Ultram. 13. Desyrel. ASSESSMENT: 1. Abdominal pain, status post colonoscopy, possibly a small amount of free air with microperforation the right lower quadrant. 2. History of possibly. 3. Relative hypotension. 4. History of recent colonoscopy and polypectomy. 5. History of cholelithiasis on the recent ultrasound. 6. Pneumatosis coli, in the recent studies. 7. Increased WBC. 8. Anemia, normocytic. 9. Increased creatinine with mild acute renal failure, possibly prerenal with dehydration, present on admission. 10. History of GERD. 11. Hypertension, essential. 12. Hyperlipidemia. 13. History of [place]'s disease. 14. Chronic kidney disease Stage III. 15. [place] toxicity. 16. Anxiety with bipolar depression. 17. Remote history of nicotine dependence. 18. Full CODE STATUS. RECOMMENDATIONS AND DISCUSSION: In this 46-year-old gentleman who presented with multiple complex medical issues, we will monitor the patient closely, continue the current medications, continue symptomatic treatment. I would hold the blood pressure medications at this time. Otherwise, continue to monitor, continue with IV fluids, continue the broad-spectrum IV antibiotics. Would also cultures as well, otherwise, blood culture and urine culture also. Otherwise, continue to monitor. Further recommendations to follow. Prognosis guarded. We will discontinue the Lisinopril and continue to monitor for now.
[2016-11-07 02:58] VITALS: RESP 16
[2016-11-07] MEDS: SODIUM CHLORIDE 0.9% 1,000 ML IV SCH (03:34)
[2016-11-07 07:35] LABS: Calcium 8.2 mg/dL (8.4-10.2); Potassium 3.7 mmol/L (3.5-5.1)
[2016-11-07 08:05] LABS: Basophils % (A) 0 %; CH 29.4; Eosinophils # (A) 0.1 k/uL (0-0.7); Eosinophils % (A) 2 %; HCT 31.4 % (39.0-53.0); HDW 2.61; HGB 9.9 gm/dL (13.0-17.5); Hypochromasia Slight; Luc # (Auto) 0.15; Luc % (Auto) 2; Lymphocytes # (A) 2.5 k/uL (1.0-4.8); Lymphocytes % (A) 34 %; MCHC 31.6 g/dL (31.0-37.0); MCV 95.1 fL (80.0-100.0); Mean Platelet Volume 6.8; Monocytes # (A) 0.4 k/uL (0-1.0); Monocytes % (A) 5 %; Neutrophils # (A) 4.3 k/uL (1.3-7.7); Neutrophils % (A) 57 %; RBC 3.31 m/uL (4.30-5.90); RDW 15.2 % (11.5-15.5); WBC 7.5 k/uL (3.8-10.6); WBC (Perox) 7.79
--- NOTE | 2016-11-07 08:54 | P.PN ---
Subjective The patient is a 46-year-old gentleman transferred from [facility] on November 04 after having undergone a colonoscopy with snare polypectomy. He developed abdominal pain and CAT scan revealed a question of a small focus of free air outside the bowel lumen and the right lower quadrant consistent with a microperforation. The patient has been treated conservatively with IV antibiotics with no abdominal pain at this time. Patient's blood pressure earlier today was 85/56. Patient's hemoglobin is stable at 9.9. The patient has no complaints and is tolerating diet without difficulty and having bowel activity. Objective - Vital Signs Vital signs: Vital Signs Temp 98.4 F 11/07/16 01:00 Pulse 78 11/07/16 04:00 Resp 16 11/07/16 04:00 BP 85/56 11/07/16 01:00 Pulse Ox 92 L 11/07/16 01:00 Intake & Output 11/06/16 11/07/16 11/07/16 18:59 06:59 18:59 Intake Total 2800 1380 Output Total 800 Balance 2800 1380 -800 Weight 88.451 kg Intake: Intake, IV Titration 920 1380 Amount Ciprofloxacin/Dextrose 200 Pmx 400 mg In Dextrose/ Water 1 200ml.bag @ 200 mls/hr IVPB Q12HR [facility] Rx# :[id number] Sodium Chloride 0.9% 1, 120 1380 000 ml @ 120 mls/hr IV . Q8H20M [facility] Rx#:[id number] Sodium Chloride 0.9% 500 500 ml @ 999 mls/hr IV .Q31M [facility] Rx#:[id number] metroNIDAZOLE-NS PMX 500 100 mg In Saline 1 100ml.bag @ 100 mls/hr IVPB Q8HR [facility] Rx#:[id number] Oral 1880 Output: Urine 800 Other: Voiding Method Toilet # Voids 1 1 - Constitutional General appearance: Present: average body habitus, no acute distress - Respiratory Respiratory: bilateral: CTA - Cardiovascular Heart sounds: normal: S1, S2 - Gastrointestinal Gastrointestinal Comment(s): No guarding or rebound General gastrointestinal: Present: normal bowel sounds, soft - Psychiatric Psychiatric: Present: A&O x's 3, appropriate affect - Labs CBC & Chem 7: 11/07/16 07:05 11/07/16 07:05 Labs: Abnormal Lab Results - Last 24 Hours (Table) 11/06/16 11/07/16 11/07/16 Range/Units 19:40 07:05 07:05 RBC 3.31 L (4.30-5.90) m/uL Hgb 9.9 L (13.0-17.5) gm/dL Hct 31.4 L (39.0-53.0) % Sodium 148 H (137-145) mmol/L Chloride 117 H 121 H* (98-107) mmol/L Carbon Dioxide 19 L 20 L (22-30) mmol/L BUN 8 L (9-20) mg/dL Creatinine 1.95 H 1.93 H (0.66-1.25) mg/dL Glucose 125 H (74-99) mg/dL Calcium 7.9 L 8.2 L (8.4-10.2) mg/dL ALT 19 L (21-72) U/L Total Protein 4.7 L (6.3-8.2) g/dL Albumin 2.5 L (3.5-5.0) g/dL Assessment and Plan Plan: Impression/plan: 1. 36-year-old white male with microperforation following colonoscopy stable from a surgical standpoint, may advance diet as tolerated 2. Hypotension which appears to have resolved. Follow up with medicine 3. History of cholelithiasis 4. History of GERD 5. History of hypertension 6. Hyperlipidemia 7. Chester's disease 8. Chronic kidney disease stage III 9. Anxiety with bipolar depression Plan: 1. From a surgical standpoint patient may be discharged if okay with medicine related to low blood pressure 2. We will check with infectious disease regarding discharge on home antibiotics
[2016-11-07] MEDS: metroNIDAZOLE-NS PMX 500 MG in SALINE 1 100ML.BAG IVPB SCH (08:58)
[2016-11-07] MEDS: ESCITALOPRAM 20 MG TAB PO SCH (08:59)
[2016-11-07] MEDS: busPIRone HCl 10 MG TAB PO SCH (08:59)
[2016-11-07] MEDS: ATORVASTATIN 40 MG TAB PO SCH (08:59)
[2016-11-07] MEDS: CYCLOBENZAPRINE 5 MG TAB PO SCH (08:59)
[2016-11-07] MEDS: PANTOPRAZOLE 40 MG/10 ML VIAL IV SCH (09:00)
[2016-11-07] MEDS: QUEtiapine 200 MG TAB PO SCH (09:01)
[2016-11-07] MEDS: CIPROFLOXACIN/DEXTROSE PMX 400 MG in DEXTROSE/WATER 1 200ML.BAG IVPB SCH (10:04)
--- NOTE | 2016-11-07 13:10 | PN ---
DATE OF SERVICE: 11/07/2016 Patient is a 46-year-old pleasant white male admitted from the hospital after a colonoscopy for severe abdominal pain and possible focal microperforation in the right lower quadrant. He has been on IV antibiotics and Surgical Service following the patient closely. He is doing much better. The abdominal pain has completely resolved. On physical examination, he appears comfortable, in no apparent distress. Vitals signs are stable. Blood pressure is 85/56, pulse is 78, temperature 98. HEENT examination unremarkable. Conjunctivae pink. Sclerae nonicteric. Oral cavity no lesions. NECK: No JVD or lymph node enlargement. Chest was clear to auscultation. HEART: Regular rate and rhythm. Abdomen is soft. Bowel sounds are positive, no organomegaly. EXTREMITIES: No pedal edema. SKIN: No rashes. NEURO: Alert and oriented x3. No focal deficits. Labs from today are still pending at the time of this dictation. IMPRESSION: 1. Abdominal pain, status post colonoscopy related to microperforation in the right lower quadrant with small focus of free air noted. Presently being managed conservatively and he is doing extremely well. He is on IV antibiotics and he was started on a clear liquid diet yesterday. I spoke to Dr. Mckeon who believes that the patient can be discharged home today. 2. His colonoscopy revealed multiple colon polyps, some of which were removed and the large polyp in the descending colon was not removed. RECOMMENDATIONS: I had a lengthy discussion with the patient regarding his recent colonoscopy, and findings and I told him that following discharge from the hospital, he will follow up in the office in 2 weeks to discuss further management.
[2016-11-07 15:10] VITALS: BP 125/79; PULSE 75; TEMP 98
[2016-11-07] MEDS ORDERED: metroNIDAZOLE 500 MG TAB PO SCH (16:00)
--- NOTE | 2016-11-07 18:07 | PN ---
DATE OF SERVICE: 11/07/2016 This is a 46-year-old gentleman who was admitted with abdominal pain and colonoscopy. A small amount of free air and suspected microperforation. The patient is improved significantly. Surgery has seen the patient as well as Gastroenterology. Surgery is planning outpatient followup. Please note patient had multiple polyps and continue to monitor for further recommendation. On exam, alert and oriented x3. Pulse 75, blood pressure 135/70, respirations 16, temperature 98 degrees, pulse ox 94% on room air. HEENT: Conjunctivae normal. NECK: No jugular venous distension. RESPIRATORY: Breath sounds diminished at the bases. No rhonchi, no crackles. Abdomen is soft, nontender, no mass palpable. EXTREMITIES: Legs no edema, no swelling. LABS: WBC is 7.5, hemoglobin is 9.9, sodium 148, potassium 3.7. ASSESSMENT: 1. Abdominal pain, status post colonoscopy with possible small amount of free air. Microperforation of the right lower quadrant. 2. History of relative hypotension. 3. History of recent colonoscopy and polypectomy. 4. History of cholelithiasis on the recent ultrasound. 5. Pneumatosis coli on the recent studies. 6. Increased WBC. 7. Anemia, normocytic. 8. Increased creatinine with mild acute renal failure, possible prerenal with dehydration, present on admission. 9. History of gastroesophageal reflux disease. 10. Hypertension, essential. 11. Hyperlipidemia. 12. History of [place]'s disease. 13. Chronic kidney disease, stage III. 14. [place] toxicity. 15. Anxiety, bipolar depression. 16. Remote history of nicotine dependence. 17. FULL CODE STATUS. RECOMMENDATION: Recommend to continue with current medications. Continue with the symptomatic treatment. Recommend outpatient follow up with the primary physician and Gastroenterology. Guarded prognosis because of multiple complex medical issues. Further recommendations to follow.
[2016-11-07] MEDS ORDERED: CIPROFLOXACIN HCL 500 MG TAB PO SCH (21:00)
--- NOTE | 2016-11-11 13:11 | P.DS ---
Providers Date of admission: 11/04/16 22:10 Expected date of discharge: 11/07/16 Attending physician: Mavis Grimes Consults: 11/05/16 07:48 Consult Physician Routine Consulting Provider: Lola Alcantar Consult Reason/Comments: post colonoscopy Do you want consulting provider notified?: Yes 11/05/16 10:00 Consult Physician Urgent Consulting Provider: Michelle Hernandez Consult Reason/Comments: Medical management Do you want consulting provider notified?: Yes Primary care physician: Stated None - Discharge Diagnosis(es) (1) Hypertensive heart and chronic kidney disease stage 3 Status: Chronic (2) Right flank pain Status: Acute (3) Depression Status: Chronic (4) Bowel perforation Status: Acute (5) Status post colonoscopy with polypectomy Status: Acute (6) [place] disease Status: Chronic (7) Cholelithiasis Status: Chronic (8) Schizoaffective disorder, bipolar type Status: Chronic Hospital Course: The patient is a 46-year-old gentleman who was transferred from [facility] after developing increased abdominal pain following a colonoscopy with snare polypectomy by Dr. Alcantar. He was observed whereby was treated with IV fluids and initial nothing by mouth status. He was tolerating diet. Diagnostic studies demonstrated no acute pneumoperitoneum which resolved from this outside computed tomography scan. Prior to discharge he was stable. Pertinent Studies: Abdominal x-ray demonstrating no pneumoperitoneum. Procedures: None. Patient Condition at Discharge: Stable Plan - Discharge Summary Discharge Medication List Cyclobenzaprine HCl 5 mg PO TID 10/27/16 [History] Escitalopram Oxalate [Lexapro] 40 mg PO DAILY 10/27/16 [History] QUEtiapine [SEROquel] 200 mg PO DAILY 10/27/16 [History] QUEtiapine [SEROquel] 800 mg PO HS 10/27/16 [History] Rosuvastatin [Crestor] 20 mg PO DAILY 10/27/16 [History] busPIRone HCL 10 mg PO BID 10/27/16 [History] traMADol HCL [Ultram] 50 - 100 mg PO Q6HR PRN 10/27/16 [History] traZODone HCL [Desyrel] 300 mg PO HS 10/27/16 [History] Albuterol Inhaler [Ventolin Hfa Inhaler] 1 - 2 puff INHALATION Q6HR PRN #1 inhaler 03/29/17 [Rx] Budesonide-Formot 160-4.5 Mcg [Symbicort 160-4.5 Mcg Inhaler] 2 puff INHALATION RT-BID #1 inhaler 11/10/16 [Rx] Levofloxacin [Levaquin] 500 mg PO DAILY #5 tab 11/10/16 [Rx] Lisinopril [Zestril] 2.5 mg PO DAILY #0 11/10/16 [Rx] Omeprazole [PriLOSEC] 40 mg PO DAILY #15 capsule. 11/10/16 [Rx] Follow up Appointment(s)/Referral(s): None,Stated [Primary Care Provider] - 1-2 days (Please make a follow up appt with a PCP loy) Discharge Disposition: HOME SELF-CARE
== END 2016-11-07 04:30 | disposition home or self-care (01) | DRG 920 ==
LOC: EC 20:57 → 3SUR 22:10
PROVIDERS: ADMIT Surgery Plastic and Reconstructive Surgery; ATTEND Surgery Plastic and Reconstructive Surgery
DX: K91.71 Accidental puncture and laceration of a digestive system organ or structure during a digestive system procedure (principal); G10 Huntington's disease; I95.9 Hypotension, unspecified; N17.9 Acute kidney failure, unspecified; N18.3 Chronic kidney disease, stage 3 (moderate); I13.10 Hypertensive heart and chronic kidney disease without heart failure, with stage 1 through stage 4 chronic kidney disease, or unspecified chronic kidney disease; K62.5 Hemorrhage of anus and rectum; E86.0 Dehydration; D64.9 Anemia, unspecified; K21.9 Gastro-esophageal reflux disease without esophagitis; E78.5 Hyperlipidemia, unspecified; F41.9 Anxiety disorder, unspecified; F31.9 Bipolar disorder, unspecified; K80.20 Calculus of gallbladder without cholecystitis without obstruction; K63.5 Polyp of colon; F17.210 Nicotine dependence, cigarettes, uncomplicated; Z86.010 Personal history of colon polyps; Z79.899 Other long term (current) drug therapy; Y83.8 Other surgical procedures as the cause of abnormal reaction of the patient, or of later complication, without mention of misadventure at the time of the procedure; Y73.0 Diagnostic and monitoring gastroenterology and urology devices associated with adverse incidents
CPT/HCPCS: 74020; 80048; 80053; 85025; 87040; 87086; 94760; 96374; 96375; 99285

== ENCOUNTER 2016-11-08 14:06 | Inpatient (IN) | payer SELFPAY ==
[2016-11-08] MEDS ORDERED: MORPHINE SULFATE 2 MG/ML SYRINGE IVP STA (15:36)
[2016-11-08] MEDS ORDERED: LEVOFLOXACIN 750MG-D5W PMX 750 MG in DEXTROSE/WATER 1 150ML.BAG IVPB STA (15:36)
[2016-11-08] MEDS ORDERED: RX INFO: IV CONTRAST WAS GIVEN 1 EACH MISC MISCELLANE PRN (15:36)
[2016-11-08] MEDS ORDERED: SODIUM CHLORIDE 0.9% 1,000 ML IV STA (15:36)
[2016-11-08] MEDS ORDERED: metroNIDAZOLE-NS PMX 500 MG in SALINE 1 100ML.BAG IVPB STA (15:37)
[2016-11-08 15:52] LABS: Basophils # (A) 0.1 k/uL (0-0.2); Basophils % (A) 1 %; CH 29.9; CHCM 32.2; Eosinophils # (A) 0.3 k/uL (0-0.7); Eosinophils % (A) 3 %; HCT 37.7 % (39.0-53.0); HGB 12.1 gm/dL (13.0-17.5); Luc # (Auto) 0.19; Luc % (Auto) 2; Lymphocytes # (A) 2.4 k/uL (1.0-4.8); Lymphocytes % (A) 25 %; MCH 30.1 pg (25.0-35.0); MCHC 32.3 g/dL (31.0-37.0); MCV 93.3 fL (80.0-100.0); Mean Platelet Volume 7.5; Monocytes # (A) 0.4 k/uL (0-1.0); Monocytes % (A) 4 %; Neutrophils # (A) 6.3 k/uL (1.3-7.7); Neutrophils % (A) 66 %; RBC 4.04 m/uL (4.30-5.90); RDW 15.4 % (11.5-15.5); WBC 9.6 k/uL (3.8-10.6); WBC (Perox) 9.86
[2016-11-08 16:03] LABS: Calcium 8.8 mg/dL (8.4-10.2); Potassium 3.7 mmol/L (3.5-5.1); Total Bilirubin 0.3 mg/dL (0.2-1.3); Total Protein 5.8 g/dL (6.3-8.2)
[2016-11-08 16:10] LABS: INR 1.1 (<1.1); Prothrombin Time 11.3 sec (9.0-12.0)
--- NOTE | 2016-11-08 17:16 | CT ---
EXAMINATION TYPE: CT abdomen pelvis wo con DATE OF EXAM: 11/08/2016 5:05 PM COMPARISON: 11/04/2016 HISTORY: Right sided abdominal pain radiating to middle. CT DLP: 1022.00 mGycm Automated exposure control for dose reduction was used. TECHNIQUE: Helical acquisition of images was performed from the lung bases through the pelvis. FINDINGS: There are bilateral pleural effusions. There is patchy pneumonic infiltrate in both lower lobes in th e posterior basal segments. Liver and spleen have normal size. Bile ducts are not dilated. There are small calcified gallstones. There is no sign of a pancreatic mass. There are multiple fluid-filled distended loops of bowel extending into the colon. There are sigmoid colon fluid levels. Bladder distends smoothly. There is no sign of ascites. I see no pelvic mass. There is no adrenal mass. Kidneys of normal size and contour. There is no hydronephrosis. There is no retroperitoneal adenopathy. There is a small hiatal hernia. I see no bony destructive process. Appen [place] is not seen. There is no sign of appendicitis. IMPRESSION: THERE ARE BILATERAL PLEURAL EFFUSIONS WITH BILATERAL LOWER LOBE PNEUMONIC INFILTRATES. THIS IS NEW CO MPARED TO THE RECENT CT SCAN OF 11/04/2016. MULTIPLE DISTENDED FLUID-FILLED LOOPS OF LARGE AND SMALL BOWEL CONSISTENT WITH ILEUS AND DIARRHEA RUBIN T IS ESSENTIALLY NEW COMPARED TO LAST EXAM. GALLSTONES.
[2016-11-08 17:45] LABS: Appearance,Urine Clear (Clear); Bilirubin,Urine Negative (Negative); Glucose,Urine (UA) Negative (Negative); Ketones,Urine Negative (Negative); Leukocyte Esterase,Urine Negative (Negative); Nitrite,Urine Negative (Negative); PH, Urine 6.5 (5.0-8.0); Protein,Urine Negative (Negative); Specific Gravity,Urine 1.004 (1.001-1.035); UA Billing (MACRO vs. MICRO) CHEM; Urobilinogen,Urine <2.0 mg/dL (<2.0)
[2016-11-08] MEDS ORDERED: IV VANCOMYCIN PER PHARMACY 1 EACH MISC MISCELLANE PRN (18:20)
[2016-11-08] MEDS ORDERED: VANCOMYCIN 1,500 MG in SODIUM CHLORIDE 0.9% 250 ML IVPB STA (18:20)
--- NOTE | 2016-11-08 19:01 | ED ---
General Adult HPI - General Chief complaint: Abdominal Pain Stated complaint: Revisit Time Seen by Provider: 11/08/16 15:23 Source: patient Mode of arrival: wheelchair Limitations: no limitations - History of Present Illness Initial comments: This 46-year-old white male presents with a complaint of some abdominal pain. He states that it is diffuse in nature. He also is felt very weak. The pain came on at around 12:30 PM today. He was also having some shortness of breath as well as a cough with yellowish production which started yesterday. He was just discharged from the hospital yesterday. He relates that he had a colonoscopy and polypectomy several days ago and they thought that he may have a colon perforation. There paralysis some free air noted under the diaphragm. He was admitted to the hospital under Dr. Hein and placed on antibiotics. He did not receive any surgery. Is feeling much improved yesterday and was subsequently discharged. He is had occasional nausea and vomiting. He states that his legs feel weak at times. He called the third floor and they told him to come to the ER. He denies any known fever. No other complaints or modifying factors. - Related Data Home Medications Medication Instructions Recorded Confirmed Cyclobenzaprine HCl 5 mg PO TID 10/27/16 11/08/16 Escitalopram Oxalate [Lexapro] 40 mg PO DAILY 10/27/16 11/08/16 Esomeprazole Magnesium [NexIUM] 40 mg PO DAILY 10/27/16 11/08/16 Lisinopril [Zestril] 5 mg PO DAILY 10/27/16 11/08/16 QUEtiapine [SEROquel] 200 mg PO DAILY 10/27/16 11/08/16 QUEtiapine [SEROquel] 800 mg PO HS 10/27/16 11/08/16 Rosuvastatin [Crestor] 20 mg PO DAILY 10/27/16 11/08/16 busPIRone HCL 10 mg PO BID 10/27/16 11/08/16 traMADol HCL [Ultram] 50 - 100 mg PO Q6HR PRN 10/27/16 11/08/16 traZODone HCL [Desyrel] 300 mg PO HS 10/27/16 11/08/16 Allergies Allergy/AdvReac Type Severity Reaction Status Date / Time Penicillins Allergy Swelling Verified 11/08/16 15:17 Sulfa (Sulfonamide Allergy Swelling Verified 11/08/16 15:17 Antibiotics) tomato Allergy Unknown Verified 11/08/16 15:17 Review of Systems ROS Statement: Those systems with pertinent positive or pertinent negative responses have been documented in the HPI. ROS Other: All systems not noted in ROS Statement are negative. Past Medical History Past Medical History: GERD/Reflux, Hyperlipidemia, Hypertension, Renal Disease Additional Past Medical History / Comment(s): Cindi, Pt states he has gallstones and is suppose to have his gallbladder removed, past lithium toxicity , CKD stage III B, gastritis, bilateral hands and feet pain and numbness, headaches. History of Any Multi-Drug Resistant Organisms: None Reported Past Surgical History: No Surgical Hx Reported Additional Past Surgical History / Comment(s): colonoscopy Past Anesthesia/Blood Transfusion Reactions: Motion Sickness Additional Past Anesthesia/Blood Transfusion Reaction / Comment(s): Pt has never had general or spinal anesthesia. Past Psychological History: Anxiety, Bipolar, Depression Additional Psychological History / Comment(s): Pt moved from [place] to [place] in March 2016. He is living with his two teenage sons, one of which has cerebral palsy (high functioning). Pt has been using his wheelchair lately due to not feeling well. Pt drives. There is also a dog and puppy in the home. Smoking Status: Current every day smoker Past Alcohol Use History: None Reported Additional Past Alcohol Use History / Comment(s): Pt states he started smoking in 1979 and is cutting down. He is now less than a pack a day smoker. He also smokes an E-cigarette. Past Drug Use History: None Reported - Past Family History Father Family Medical History: Myocardial Infarction ([place]) Additional Family Medical History / Comment(s): Father of a [place] at the age of 63yrs. Mother Family Medical History: No Reported History Additional Family Medical History / Comment(s): Mother is living. She has a bone density problem. General Exam - General Exam Comments Initial Comments: GENERAL: The patient is well nourished and well hydrated. VITAL SIGNS: Heart rate, blood pressure, respiratory rate reviewed as recorded in nurse's notes. EYES: Pupils are round and reactive. Extraocular movements are intact. No conjunctival / lid redness or swelling. ENT: No external evidence of injury, swelling, or ecchymosis. Airway is patent. Throat is clear. NECK: Nontender. No swelling or evidence of injury. No subcutaneous emphysema. Trachea is midline. No thyroid mass. HEART: Regular rate and rhythm. Good peripheral pulses. LUNGS/CHEST: Breath sounds clear and equal bilaterally. No rales, rhonchi, or wheezes. No ecchymosis, subcutaneous emphysema, or tenderness. ABDOMEN: There is mild tenderness noted diffusely to the abdomen. No palpable masses or organomegaly. No peritoneal signs. No abdominal wall swelling or ecchymosis. EXTREMITIES: No extremity tenderness. Normal muscle tone and function. No thoracolumbar tenderness. NEUROLOGIC: Sensation is grossly intact. Cranial nerve exam reveals face is symmetrical, tongue is midline, speech is clear. SKIN: No abrasions or ecchymosis is noted. No induration or masses noted. PSYCHIATRIC: Alert and oriented. Appropriate behavior and judgment. Limitations: no limitations Course Vital Signs 11/08/16 11/08/16 11/08/16 14:51 15:08 16:01 Temperature 98.3 F Pulse Rate 72 80 85 Respiratory 16 16 18 Rate Blood Pressure 81/54 104/56 118/70 O2 Sat by Pulse 96 97 94 L Oximetry 11/08/16 11/08/16 16:47 18:03 Temperature 97.8 F Pulse Rate 83 78 Respiratory 16 16 Rate Blood Pressure 129/80 113/81 O2 Sat by Pulse 94 L 97 Oximetry Medical Decision Making - Medical Decision Making The patient was seen and examined. All diagnostics were reviewed. He did receive IV antibiotics. A computed tomography scan of the abdomen and pelvis was done and there is no evidence of perforation. There is some fluid-filled loops of bowel. There also is some bilateral infiltrative/pneumonic changes at the bases of both lungs. The patient's creatinine is elevated at 1.80 and his CO2 is decreased at 20 consistent with dehydration. His hemoglobin is slightly low at 12.1. It is felt as though he would benefit from further IV antibiotic inpatient treatment for his pneumonia and GI prophylaxis. He states that he never got his antibiotics of Flagyl and a fluoroquinolone filled yesterday as the pharmacy did not have it available. The case is discussed with internal medicine and they're agreeable to admission. - Lab Data Result diagrams: 11/08/16 15:22 11/08/16 15:22 Lab Results 11/08/16 11/08/16 11/08/16 Range/Units 15:22 15:22 15:22 WBC 9.6 (3.8-10.6) k/uL RBC 4.04 L (4.30-5.90) m/uL Hgb 12.1 L (13.0-17.5) gm/dL Hct 37.7 L (39.0-53.0) % MCV 93.3 (80.0-100.0) fL MCH 30.1 (25.0-35.0) pg MCHC 32.3 (31.0-37.0) g/dL RDW 15.4 (11.5-15.5) % Plt Count 195 (150-450) k/uL Neutrophils % 66 % Lymphocytes % 25 % Monocytes % 4 % Eosinophils % 3 % Basophils % 1 % Neutrophils # 6.3 (1.3-7.7) k/uL Lymphocytes # 2.4 (1.0-4.8) k/uL Monocytes # 0.4 (0-1.0) k/uL Eosinophils # 0.3 (0-0.7) k/uL Basophils # 0.1 (0-0.2) k/uL PT 11.3 (9.0-12.0) sec INR 1.1 (<1.1) APTT 20.0 L (22.0-30.0) sec Sodium 144 (137-145) mmol/L Potassium 3.7 (3.5-5.1) mmol/L Chloride 111 H (98-107) mmol/L Carbon Dioxide 20 L (22-30) mmol/L Anion Gap 13 mmol/L BUN 7 L (9-20) mg/dL Creatinine 1.80 H (0.66-1.25) mg/dL Est GFR (MDRD) Af Amer 49 (>60 ml/min/1.73 sqM) Est GFR (MDRD) Non-Af 40 (>60 ml/min/1.73 sqM) Glucose 88 (74-99) mg/dL Calcium 8.8 (8.4-10.2) mg/dL Total Bilirubin 0.3 (0.2-1.3) mg/dL AST 20 (17-59) U/L ALT 23 (21-72) U/L Alkaline Phosphatase 88 (38-126) U/L Total Protein 5.8 L (6.3-8.2) g/dL Albumin 3.4 L (3.5-5.0) g/dL Amylase 57 (30-110) U/L Lipase 82 (23-300) U/L Urine Color Urine Appearance (Clear) Urine pH (5.0-8.0) Ur Specific [place] (1.001-1.035) Urine Protein (Negative) Urine Glucose (UA) (Negative) Urine Ketones (Negative) Urine Blood (Negative) Urine Nitrite (Negative) Urine Bilirubin (Negative) Urine Urobilinogen (<2.0) mg/dL Ur Leukocyte Esterase (Negative) 11/08/16 Range/Units 17:30 WBC (3.8-10.6) k/uL RBC (4.30-5.90) m/uL Hgb (13.0-17.5) gm/dL Hct (39.0-53.0) % MCV (80.0-100.0) fL MCH (25.0-35.0) pg MCHC (31.0-37.0) g/dL RDW (11.5-15.5) % Plt Count (150-450) k/uL Neutrophils % % Lymphocytes % % Monocytes % % Eosinophils % % Basophils % % Neutrophils # (1.3-7.7) k/uL Lymphocytes # (1.0-4.8) k/uL Monocytes # (0-1.0) k/uL Eosinophils # (0-0.7) k/uL Basophils # (0-0.2) k/uL PT (9.0-12.0) sec INR (<1.1) APTT (22.0-30.0) sec Sodium (137-145) mmol/L Potassium (3.5-5.1) mmol/L Chloride (98-107) mmol/L Carbon Dioxide (22-30) mmol/L Anion Gap mmol/L BUN (9-20) mg/dL Creatinine (0.66-1.25) mg/dL Est GFR (MDRD) Af Amer (>60 ml/min/1.73 sqM) Est GFR (MDRD) Non-Af (>60 ml/min/1.73 sqM) Glucose (74-99) mg/dL Calcium (8.4-10.2) mg/dL Total Bilirubin (0.2-1.3) mg/dL AST (17-59) U/L ALT (21-72) U/L Alkaline Phosphatase (38-126) U/L Total Protein (6.3-8.2) g/dL Albumin (3.5-5.0) g/dL Amylase (30-110) U/L Lipase (23-300) U/L Urine Color Yellow Urine Appearance Clear (Clear) Urine pH 6.5 (5.0-8.0) Ur Specific [place] 1.004 (1.001-1.035) Urine Protein Negative (Negative) Urine Glucose (UA) Negative (Negative) Urine Ketones Negative (Negative) Urine Blood Negative (Negative) Urine Nitrite Negative (Negative) Urine Bilirubin Negative (Negative) Urine Urobilinogen <2.0 (<2.0) mg/dL Ur Leukocyte Esterase Negative (Negative) Disposition Clinical Impression: Abdominal pain, Bilateral pneumonia, Weakness, Acute kidney injury, Dehydration , Anemia Disposition: ADMITTED IP TO THIS [facility] Condition: Fair Time of Disposition: 19:01 Decision Date: 11/08/16 Decision Time: 19:01
[2016-11-08] MEDS ORDERED: PNEUMONIA PROTOCOL UTILIZED 1 EACH MISC PO PRN (19:02)
[2016-11-08] MEDS ORDERED: IPRATROPIUM-ALBUTEROL 3 ML NEB INHALATION PRN (19:02)
[2016-11-08] MEDS ORDERED: SODIUM CHLORIDE 0.9% 500 ML IV STA (19:06)
[2016-11-08] MEDS ORDERED: traMADol 50 MG TAB PO PRN (19:06)
[2016-11-08 20:46] VITALS: BMI 27.8
[2016-11-08] MEDS: QUEtiapine 400 MG TAB PO SCH (21:41)
[2016-11-08] MEDS: busPIRone HCl 10 MG TAB PO SCH (21:41)
[2016-11-08] MEDS: traZODone HCL 100 MG TAB PO SCH (21:42)
[2016-11-08] MEDS: CYCLOBENZAPRINE 5 MG TAB PO SCH (21:43)
[2016-11-09] MEDS: AZTREONAM 2 GM in SODIUM CHLORIDE 0.9% 100 ML IVPB SCH ×2 (01:06→09:18)
[2016-11-09] MEDS ORDERED: PANTOPRAZOLE 40 MG TABLET PO SCH (07:30)
[2016-11-09 07:47] LABS: Calcium 8.5 mg/dL (8.4-10.2); Potassium 3.7 mmol/L (3.5-5.1)
[2016-11-09] MEDS: ATORVASTATIN 40 MG TAB PO SCH (08:05)
[2016-11-09] MEDS: QUEtiapine 200 MG TAB PO SCH (08:06)
[2016-11-09] MEDS: ESCITALOPRAM 20 MG TAB PO SCH (08:06)
[2016-11-09] MEDS: ENOXAPARIN 40 MG/0.4 ML SYRINGE SQ SCH (08:06)
[2016-11-09] MEDS: CYCLOBENZAPRINE 5 MG TAB PO SCH ×3 (08:06→21:04)
[2016-11-09] MEDS: busPIRone HCl 10 MG TAB PO SCH ×2 (08:06→21:02)
[2016-11-09] MEDS: VANCOMYCIN 1,500 MG in SODIUM CHLORIDE 0.9% 250 ML IVPB SCH ×2 (08:11→23:52)
[2016-11-09] MEDS ORDERED: LEVOFLOXACIN 750MG-D5W PMX 750 MG in DEXTROSE/WATER 1 150ML.BAG IVPB SCH (09:00)
[2016-11-09] MEDS ORDERED: LISINOPRIL 5 MG TAB PO SCH (09:00)
--- NOTE | 2016-11-09 10:08 | XR ---
EXAMINATION TYPE: XR chest 2V DATE OF EXAM: 11/09/2016 6:44 AM HISTORY: pneumonia. REFERENCE: NONE. FINDINGS: The heart is enlarged. There is atelectatic change within the right lung. There is some air space disease in the left lower lobe. Pleural spaces appear clear. IMPRESSION: 1. CARDIOMEGALY. 2. BIBASILAR AIRSPACE DISEASE.
--- NOTE | 2016-11-09 10:30 | P.GSCN ---
History of Present Illness Consult date: 11/09/16 Reason for Consult: Abdominal pain History of present illness: 46-year-old male, being seen at the request of the attending for a surgical eval for abdominal pain. just discharged on November 07 at that hospitalization the patient was being treated for abdominal pain status post colonoscopy done at [facility] by Dr.k Sanchez post procedure patient did develop abdominal pain was transferred from [facility] to [facility] for microperforation small amount of free air on a CAT scan of the abdomen. Patient that admission was seen by Dr. Orantes surgical service who indicated at that time there was no surgical intervention warranted the abdomen was felt to be not acute surgical abdomen diet was slowly advanced the abdominal pain was stable at that time there was no surgical intervention warranted patient was felt to be stable from a surgical perspective could be followed in the outpatient setting. Patient states that he did return on the less than 24 hours later patient indicated what was bothering him the most was "neck pain patient points to the posterior neck he states it felt numb. Patient adamantly denies any abdominal pain does state he is having left lower rib pain. This been no nausea no vomiting no frequent stooling. Patient states he did not get the 2 antibiotics filled when he was discharged on Tuesday this week the pharmacist stated they did not have them available patient states she's not been experiencing any cough fever or chills. Review of Systems Essentially unremarkable except as mentioned in the present illness Past Medical History Past Medical History: GERD/Reflux, Hyperlipidemia, Hypertension, Renal Disease Additional Past Medical History / Comment(s): Cindi Pt states he has gallstones and is suppose to have his gallbladder removed, past lithium toxicity , CKD stage III B, gastritis, bilateral hands and feet pain and numbness, headaches. History of Any Multi-Drug Resistant Organisms: None Reported Past Surgical History: No Surgical Hx Reported Additional Past Surgical History / Comment(s): colonoscopy Past Anesthesia/Blood Transfusion Reactions: Motion Sickness Additional Past Anesthesia/Blood Transfusion Reaction / Comm: Pt has never had general or spinal anesthesia. Past Psychological History: Anxiety, Bipolar, Depression Additional Psychological History / Comment(s): Pt moved from [place] to [place] in March 2016. He is living with his two teenage sons, one of which has cerebral palsy (high functioning). Pt has been using his wheelchair lately due to not feeling well. Pt drives. There is also a dog and puppy in the home. Smoking Status: Current every day smoker Past Alcohol Use History: None Reported Additional Past Alcohol Use History / Comment(s): Pt states he started smoking in 1979 and is cutting down. He is now less than a pack a day smoker. He also smokes an E-cigarette. Past Drug Use History: None Reported - Past Family History Father Family Medical History: Myocardial Infarction ([place]) Additional Family Medical History / Comment(s): Father of a [place] at the age of 63yrs. Mother Family Medical History: No Reported History Additional Family Medical History / Comment(s): Mother is living. She has a bone density problem. Medications and Allergies Home Medications Medication Instructions Recorded Confirmed Type Cyclobenzaprine HCl 5 mg PO TID 10/27/16 11/08/16 History Escitalopram Oxalate [Lexapro] 40 mg PO DAILY 10/27/16 11/08/16 History Esomeprazole Magnesium [NexIUM] 40 mg PO DAILY 10/27/16 11/08/16 History Lisinopril [Zestril] 5 mg PO DAILY 10/27/16 11/08/16 History QUEtiapine [SEROquel] 200 mg PO DAILY 10/27/16 11/08/16 History QUEtiapine [SEROquel] 800 mg PO HS 10/27/16 11/08/16 History Rosuvastatin [Crestor] 20 mg PO DAILY 10/27/16 11/08/16 History busPIRone HCL 10 mg PO BID 10/27/16 11/08/16 History traMADol HCL [Ultram] 50 - 100 mg PO Q6HR PRN 10/27/16 11/08/16 History traZODone HCL [Desyrel] 300 mg PO HS 10/27/16 11/08/16 History Allergies Allergy/AdvReac Type Severity Reaction Status Date / Time Penicillins Allergy Swelling Verified 11/08/16 15:17 Sulfa (Sulfonamide Allergy Swelling Verified 11/08/16 15:17 Antibiotics) tomato Allergy Unknown Verified 11/08/16 15:17 Surgical - Exam Vital Signs Temp Pulse Resp BP Pulse Ox 98.3 F 72 16 81/54 96 11/08/16 14:51 11/08/16 14:51 11/08/16 14:51 11/08/16 14:51 11/08/16 14:51 GENERAL APPEARANCE: 46-year-old male patient is alert, oriented 3, in no acute distress. States it's bothering him the most is the pain in the back of his neck feels numb VITAL SIGNS: Reviewed HEENT: Head is normocephalic and atraumatic. Pupils are equal and reactive. The nares are patent. Oropharynx is clear without lesions. NECK: Supple without lymphadenopathy. Traches midline. HEART: S1, S2. Regular rate and rhythm. No murmur noted denying chest pain LUNGS: Diminished at the bases posterior upper airways bronchial breath sounds no cough noted sat on 2 L or 88% titrating the O2 up to 3 sets were 93% states has been feeling slightly short of breath with exertion states no hemoptysis ABDOMEN: Soft, nontender, nondistended with good bowel sounds. No peritoneal signs. No palpable organomegaly or masses. No facial grimacing with palpitation to the abdominal wall patient points to the left upper lateral chest is to a reference point where he's been experiencing discomfort states has been no diaphoresis EXTREMITIES: Normal skin color and turgor. No cyanosis, rash, ulceration, clubbing or edema. Radial pedal pulses are 2/4 bilaterally. NEUROLOGICAL: No focal deficits. Strength and sensation are grossly intact. Results - Labs 11/08/16 15:22 11/09/16 06:49 Abnormal Lab Results - Last 24 Hours (Table) 11/09/16 Range/Units 06:49 Sodium 147 H (137-145) mmol/L Chloride 118 H (98-107) mmol/L Carbon Dioxide 19 L (22-30) mmol/L BUN 8 L (9-20) mg/dL Creatinine 1.68 H (0.66-1.25) mg/dL Diabetes panel 11/09/16 Range/Units 06:49 Sodium 147 H (137-145) mmol/L Potassium 3.7 (3.5-5.1) mmol/L Chloride 118 H (98-107) mmol/L Carbon Dioxide 19 L (22-30) mmol/L BUN 8 L (9-20) mg/dL Creatinine 1.68 H (0.66-1.25) mg/dL Glucose 87 (74-99) mg/dL Calcium 8.5 (8.4-10.2) mg/dL Calcium panel 11/09/16 Range/Units 06:49 Calcium 8.5 (8.4-10.2) mg/dL Pituitary panel 11/09/16 Range/Units 06:49 Sodium 147 H (137-145) mmol/L Potassium 3.7 (3.5-5.1) mmol/L Chloride 118 H (98-107) mmol/L Carbon Dioxide 19 L (22-30) mmol/L BUN 8 L (9-20) mg/dL Creatinine 1.68 H (0.66-1.25) mg/dL Glucose 87 (74-99) mg/dL Calcium 8.5 (8.4-10.2) mg/dL Adrenal panel 11/09/16 Range/Units 06:49 Sodium 147 H (137-145) mmol/L Potassium 3.7 (3.5-5.1) mmol/L Chloride 118 H (98-107) mmol/L Carbon Dioxide 19 L (22-30) mmol/L BUN 8 L (9-20) mg/dL Creatinine 1.68 H (0.66-1.25) mg/dL Glucose 87 (74-99) mg/dL Calcium 8.5 (8.4-10.2) mg/dL Assessment and Plan Plan: Impression Present on admission left lateral chest wall discomfort likely due to bilateral lower lobe pneumonia per CAT scan of the abdomen and pelvis without contrast done on admission CAT scan abdomen and pelvis bilateral pleural effusions noted Acute hypoxic respiratory insufficiency pulse ox sat on 2 L 88% History of cholelithiasis as evident on ultrasound of the abdomen pelvis done October 27 with the stone in the neck of the gallbladder Current every day smoker A mood disorder bipolar type I History of a colonoscopy with snare polypectomy post procedure abdominal pain CAT scan abdomen and pelvis suggest small amount of free air microperforation in the right lower quadrant [facility] November 04 Plan From a surgical perspective there is no evidence of an acute surgical abdomen Resume home meds as appropriate Agree with restarting antibiotics as ordered We'll continue to monitor labs with further surgical recommendations as indicated defer to medical service for medical management Thank you for allowing us to participate in the surgical care of your patient The above dictated assessment and findings were discussed with Dr. Lalit Saavedra. Impression and the plan of care have been dictated as directed. Jeannette Gross nurse practitioner acting as a scribe for the [facility]
[2016-11-09] MEDS: SODIUM CHLORIDE 0.9% 1,000 ML IV SCH ×2 (11:09→14:26)
[2016-11-09] MEDS ORDERED: traMADol 50 MG TAB PO PRN (12:16)
[2016-11-09] MEDS ORDERED: IPRATROPIUM-ALBUTEROL 3 ML NEB INHALATION PRN (12:29)
--- NOTE | 2016-11-09 13:15 | HP ---
DATE OF ADMISSION: 11/08/2016 46-year-old gentleman who was recently discharged from the hospital a couple of times and came back again with some multiple nonspecific symptoms. Patient is a poor historian, appears to have some memory issues. The patient is complaining of neck pain with numbness and patient is also complaining of vague right upper quadrant abdominal discomfort. CT of the abdomen was done which is essentially within normal limits which although was read as a bilateral infiltrate. I did review the CT. He has minimal bilateral pleural effusions and I did not see any air bronchogram and mild atelectasis. I do not believe patient has pneumonia. Patient did not have any fevers at home. Patient is also complaining of tingling, numbness in bilateral upper limbs, although has good strength in bilateral upper limbs as well as lower limbs. Patient does not have any leukocytosis. My suspicion of pneumonia is low, although he is complaining of cough with brownish sputum production. He may have bronchitis and patient is a smoker. The patient on exam has clear lungs because of which I am going and getting a VQ scan to rule out any pulmonary embolism. I do not believe D-dimer will benefit that much, although if d-dimer is negative, we can actually rule out pulmonary embolism because of which I am going to go ahead and do d-dimer, because of the right upper quadrant abdominal pain which is vague and even though Paulino's sign is negative, since it radiates back between the shoulder blades, I will go ahead and do ultrasound of the abdomen to rule out any cholelithiasis. He is unable to characterize pain in the right upper quadrant, although patient denied any other abdominal pain. Patient denied any fever, chills and I am also going ahead and consulting neurology because of his tingling and numbness which is mostly peripheral neuropathy rather than degenerative disease on the neck. I did review the CT scan of the abdomen and there is no comment on significant lumbar spine or lower thoracic spine involvement that can explain his numbness. REVIEW OF SYSTEMS: CONSTITUTIONAL: No fever, no malaise, no fatigue. HEENT: No recent visual problems or hearing problems. Denied any sore throat. CARDIOVASCULAR: No chest pain, orthopnea, PND, no palpitations, no syncope. Chest: As described in HPI. PULMONARY: No shortness of breath, no cough, no hemoptysis. GASTROINTESTINAL: As described in HPI. NEUROLOGICAL: As described in HPI. HEMATOLOGICAL: Denies any bleeding or petechiae. GENITOURINARY: Denies any burning micturition, frequency, or urgency. MUSCULOSKELETAL/RHEUMATOLOGICAL: Denies any joint pain, swelling, or any muscle pain. ENDOCRINE: Denies any polyuria or polydipsia. The rest of the 14 point review of systems is negative. PAST MEDICAL HISTORY: Gastroesophageal reflux disease, hyperlipidemia, hypertension, CKD stage III, baseline creatinine is around 1.9. His creatinine is actually better than his baseline. Patient does have history of gallstones, lithium toxicity in the past. Past psychological history: Anxiety, bipolar depression and the patient is on lithium at this point of time. SOCIAL HISTORY: Patient continues to smoke about a pack per day. Denied any alcohol abuse or any drug abuse. FAMILY HISTORY: Father had myocardial infarction and at age of 63, mother is still living without any major medical problems. Home medications include: 1. Cyclobenzaprine. 2. ( ). 3. ( ). 4. Lisinopril. 5. Seroquel. 6. ( ). 7. Buspirone. 8. Tramadol. 9. Trazodone. ALLERGIES: ALLERGIC TO PENICILLINS AND SULFA DRUGS AND TOMATO. PHYSICAL EXAMINATION: VITAL SIGNS: Temperature 97.5, pulse of 73, respiratory rate of 16, blood pressure is a 73/53. Saturating at 88% on 2 L O2 by nasal cannula. GENERAL: Patient is alert and patient appears to have some chronic memory issues. HEENT: Pupils are round and equally reacting to light. EOMI. No scleral icterus. No conjunctival pallor. Normocephalic, atraumatic. No pharyngeal erythema. No thyromegaly. CARDIOVASCULAR: S1 and S2 present. No murmurs, rubs, or gallops. PULMONARY: Chest is clear to auscultation, no wheezing or crackles. ABDOMEN: Soft, nontender, nondistended, normoactive bowel sounds. No palpable organomegaly. MUSCULOSKELETAL: No joint swelling or deformity. EXTREMITIES: No cyanosis, clubbing, or pedal edema. NEUROLOGICAL: Gross neurological examination did not reveal any focal deficits. SKIN: No rashes. Laboratory data was reviewed: The CT results as mentioned above. ASSESSMENT AND PLAN: 1. Neck pain and numbness in bilateral arms and lower limbs. We will Neurology to evaluate the patient. The patient most probably has peripheral neuropathy. Patient is a poor historian. Does not have any weakness. Further evaluation and management as per neurology. 2. Bronchitis without any significant chronic obstructive pulmonary disease exacerbation, although patient is a smoker, the patient may have bronchitis, because of which I will go ahead and continue Levaquin 750 mg is a bit a higher dose because of his poor renal function but will be changed to 500 mg. The rest of the antibiotics will be discontinued. I do not believe patient has pneumonia. I did review the CT which did not show any air bronchogram. Patient does have atelectasis and mild bilateral pleural effusions though and patient will be started on Symbicort. 3. Right upper quadrant abdominal pain, although pretty nonspecific because of history of cholelithiasis and pain radiating to between the shoulder blade area, I will go ahead and get the ultrasound of the gallbladder. Surgery, although evaluated the patient already. 4. Acute hypoxic respiratory failure; unsure of the exact etiology. I will obtain D-dimer and VQ scan because of poor renal function. 5. Chronic kidney disease Stage III. Patient's kidney function is actually better than his baseline at this time, I will stop the IV fluids because of the pleural effusions. 6. Gastroesophageal reflux disease. 7. History of cholelithiasis. 8. Bipolar disorder. 9. Continued nicotine dependence. Counseling regarding nicotine dependence was provided. 10. Hyperchloremia secondary to IV fluids. 11. Hypertension. We will hold off on his Lisinopril because of the low normal blood pressures.
--- NOTE | 2016-11-09 14:45 | NM ---
EXAMINATION TYPE: NM pul vent and perfuse DATE OF EXAM: 11/09/2016 2:36 PM COMPARISON: NONE HISTORY: Chest pain and shortness of breath TECHNIQUE: Utilizing inhalation of 69.5 mCi Tc 99m DTPA aerosol and intravenous injection of 5.5 mCi of Tc 99m MAA, ventilation and perfusion images are acquired post injection in multiple projections. FINDINGS: Ventilation and perfusion are normal. No VQ mismatches are seen. IMPRESSION: THIS EXAMINATION IS LOW PROBABILITY FOR PULMONARY EMBOLUS.
[2016-11-09] MEDS: PANTOPRAZOLE 40 MG TABLET PO SCH (17:00)
[2016-11-09] MEDS: SYMBICORT 160-4.5 MCG INHALER INHALATION SCH (18:48)
--- NOTE | 2016-11-09 19:15 | P.CNNES ---
History of Present Illness Consult date: 11/09/16 Reason for Consult: Patient with numbness in the back and hands. History of Present Illness: This patient is a 46-year-old right-handed white male who was admitted to Hospital for evaluation of numbness involving his back. Patient states he was just recently discharged from [facility] on Tuesday. He states he was in the hospital for surgical evaluation due to abdominal pain. Patient had undergone a recent colonoscopy in [place] by Dr. Sanchez. Apparently he had developed a mild microperforation from the procedure. He was seen by surgery and was discharged on 11/07/2016 back home. Apparently yesterday he developed some numb area which she states is in the neck and lower thoracic region which started suddenly. He states the area feels numb and he has no feeling. He also has a history of neuropathy involving his hands and feet. This is been present since 1983. He has not been evaluated or tested for neuropathy in the past. 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 He thinks this was the [facility]. He mentions that his father also had a history of Camille's disease and has since . Patient states that his numbness in the hands and feet have been unchanged for many years. As noted he states this has been problematic for him since 1983. He has just moved to the area locally from [place] and apparently was being arranged for a consultation in the [facility] at the [facility] for further evaluation and treatment. The patient is being evaluated for right upper quadrant abdominal pain as well and is scheduled for a ultrasound to look for acute cholelithiasis. He otherwise has been doing well and is now admitted and neurology has been consulted for further evaluation and recommendations. Review of Systems Constitutional: Denies chills, Denies fever Eyes: denies blurred vision, denies pain Ears, nose, mouth and throat: Denies headache, Denies sore throat Cardiovascular: Denies chest pain, Denies shortness of breath Respiratory: Denies cough Gastrointestinal: Denies abdominal pain, Denies diarrhea, Denies nausea, Denies vomiting Musculoskeletal: Reports muscle cramps, Reports muscle weakness, Reports neck pain, Denies myalgias Integumentary: Denies pruritus, Denies rash Neurological: Reports balance difficulties, Reports confusion, Reports gait dysfunction, Reports paresthesias, Reports tingling, Denies numbness, Denies weakness Psychiatric: Denies anxiety, Denies depression Endocrine: Denies fatigue, Denies weight change Past Medical History Past Medical History: GERD/Reflux, Hyperlipidemia, Hypertension, Renal Disease Additional Past Medical History / Comment(s): Cindi Pt states he has gallstones and is suppose to have his gallbladder removed, past lithium toxicity , CKD stage III B, gastritis, bilateral hands and feet pain and numbness, headaches. History of Any Multi-Drug Resistant Organisms: None Reported Past Surgical History: No Surgical Hx Reported Additional Past Surgical History / Comment(s): colonoscopy Past Anesthesia/Blood Transfusion Reactions: Motion Sickness Additional Past Anesthesia/Blood Transfusion Reaction / Comment(s): Pt has never had general or spinal anesthesia. Past Psychological History: Anxiety, Bipolar, Depression Additional Psychological History / Comment(s): Pt moved from [place] to [place] in March 2016. He is living with his two teenage sons, one of which has cerebral palsy (high functioning). Pt has been using his wheelchair lately due to not feeling well. Pt drives. There is also a dog and puppy in the home. Smoking Status: Current every day smoker Past Alcohol Use History: None Reported Additional Past Alcohol Use History / Comment(s): Pt states he started smoking in 1979 and is cutting down. He is now less than a pack a day smoker. He also smokes an E-cigarette. Past Drug Use History: None Reported - Past Family History Father Family Medical History: Myocardial Infarction (AK) Additional Family Medical History / Comment(s): Father of a AK at the age of 63yrs. Mother Family Medical History: No Reported History Additional Family Medical History / Comment(s): Mother is living. She has a bone density problem. Medications and Allergies Home Medications Medication Instructions Recorded Confirmed Type Cyclobenzaprine HCl 5 mg PO TID 10/27/16 11/08/16 History Escitalopram Oxalate [Lexapro] 40 mg PO DAILY 10/27/16 11/08/16 History Esomeprazole Magnesium [NexIUM] 40 mg PO DAILY 10/27/16 11/08/16 History Lisinopril [Zestril] 5 mg PO DAILY 10/27/16 11/08/16 History QUEtiapine [SEROquel] 200 mg PO DAILY 10/27/16 11/08/16 History QUEtiapine [SEROquel] 800 mg PO HS 10/27/16 11/08/16 History Rosuvastatin [Crestor] 20 mg PO DAILY 10/27/16 11/08/16 History busPIRone HCL 10 mg PO BID 10/27/16 11/08/16 History traMADol HCL [Ultram] 50 - 100 mg PO Q6HR PRN 10/27/16 11/08/16 History traZODone HCL [Desyrel] 300 mg PO HS 10/27/16 11/08/16 History Allergies Allergy/AdvReac Type Severity Reaction Status Date / Time Penicillins Allergy Swelling Verified 11/08/16 15:17 Sulfa (Sulfonamide Allergy Swelling Verified 11/08/16 15:17 Antibiotics) tomato Allergy Unknown Verified 11/08/16 15:17 Physical Examination - Vital Signs Vital Signs: Vital Signs Temp Pulse Pulse Resp BP BP Pulse Ox 11/09/16 08:00 73 16 11/09/16 07:00 97.5 F L 73 16 97/53 88 L 11/09/16 04:00 78 17 11/09/16 00:15 97.5 F L 78 17 104/65 93 L 11/08/16 20:21 98.0 F 20 11/08/16 20:11 97.8 F 82 18 133/77 98 11/08/16 19:10 84 16 124/81 97 Intake and Output 11/08/16 11/09/16 11/09/16 22:59 06:59 14:59 Intake Total 75 800 480 Balance 75 800 480 Intake: Intake, IV Titration 75 800 Amount Sodium Chloride 0.9% 1, 75 800 000 ml @ 100 mls/hr IV . Q10H [facility] Rx#:[id number] Oral 480 Other: Voiding Method Toilet Weight 90.718 kg - Constitutional General appearance: average body habitus, cooperative - EENT EENT: PERRL, mucous membranes moist - Respiratory Respiratory: lungs clear, normal breath sounds - Cardiovascular Cardiovascular: regular rate, normal S1, normal S2 Extremities: no peripheral edema bilaterally - Gastrointestinal Gastrointestinal: normoactive bowel sounds - Integumentary Integumentary: normal - Neurologic Cranial nerve examination: PERRL, EOMI, VFF, V1/V2/V3 grossly intact, face symmetric, tongue midline, intact gag reflex, intact corneal reflex, normal palatal elevation Speech examination: intact Sensorimotor examination: intact Detailed motor examination: grossly full strength in all extremities Motor examination - right side: 5/5: biceps, triceps, wrist flexion, wrist extension, sales office coordinator, hip flexors, knee extensors, dorsiflexion, toe extension (EHL) , plantarflexion Motor examination - left side: 5/5: biceps, triceps, wrist flexion, wrist extension, sales office coordinator, hip flexors, knee extensors, dorsiflexion, toe extension (EHL) , plantarflexion Detailed sensory examination: intact Reflex and gait examination: intact Reflexes: 1+: ankle, bicep, knee, tricep - Musculoskeletal Musculoskeletal: no pain - Psychiatric Psychiatric: mood/affect appropriate, cooperative Results - Laboratory Findings CBC and BMP: 11/08/16 15:22 11/09/16 06:49 Abnormal Lab Findings: Abnormal Labs 11/09/16 11/09/16 06:49 13:12 D-Dimer 3.04 H Sodium 147 H Chloride 118 H Carbon Dioxide 19 L BUN 8 L Creatinine 1.68 H Assessment and Plan (1) Peripheral neuropathy Status: Acute Code(s): G62.9 - POLYNEUROPATHY, UNSPECIFIED (2) History of Camille's disease Status: Acute Code(s): Z86.69 - PERSONAL HISTORY OF DIS OF THE NERVOUS SYS AND SENSE ORGANS (3) Bipolar disorder Status: Acute Code(s): F31.9 - BIPOLAR DISORDER, UNSPECIFIED (4) Acute right flank pain Status: Acute Code(s): R10.9 - UNSPECIFIED ABDOMINAL PAIN (5) Right flank pain Status: Acute Code(s): R10.9 - UNSPECIFIED ABDOMINAL PAIN Plan: This patient is a 46-year-old male who was admitted to Hospital with symptoms of numbness and sensory changes involving the thoracic and cervical region of his neck and spine area. The symptoms started yesterday and he was advised to come to Hospital. 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 He is to follow-up in the [facility] clinic at the [facility]. Patient likely has long- standing history of peripheral neuropathy. He complains of numbness and tingling in both hands and feet since 1983. We have recommended some laboratory testing for peripheral neuropathy. We would also recommend computed tomography scan of the cervical and thoracic spine for further evaluation of his symptoms of numbness in the spine region. Patient should follow up at the [facility] in the specialized [facility]. He is also being evaluated for right upper quadrant abdominal pain at this time. We will continue to follow this patient's progress closely during this admission. His overall prognosis at this time remains guarded. Time with Patient: Greater than 30
[2016-11-09] MEDS: QUEtiapine 400 MG TAB PO SCH (21:03)
[2016-11-09] MEDS: traZODone HCL 100 MG TAB PO SCH (21:04)
--- NOTE | 2016-11-09 22:42 | CT ---
EXAMINATION TYPE: CT CervThoracic spine wo con DATE OF EXAM: 11/09/2016 8:00 PM COMPARISON: NONE HISTORY: Pt states of nuumbness near C-7 T-1 area. No known injury. CT DLP: 1819 mGycm Automated exposure control for dose reduction was used. FINDINGS: SKELETAL STRUCTURES: There is no fracture or malalignment. No focal skeletal lesion. PARASPINAL SOFT TISSUES: No acute process. No focal findings. INCIDENTAL FINDINGS: Bibasilar atelectasis with air bronchograms noted. This can correlate with a cli nical diagnosis of bibasilar bronchopneumonia. No other incidental findings. IMPRESSION: NO DEFINITE ACUTE PROCESS, ALTHOUGH BILATERAL PULMONARY LOWER LOBE PARTIAL AIRLESSNESS NOTED.
[2016-11-10 07:11] LABS: CH 29.5; CHCM 31.4; HCT 34.1 % (39.0-53.0); HDW 2.82; Hypochromasia Slight; MCH 30.4 pg (25.0-35.0); MCHC 32.2 g/dL (31.0-37.0); MCV 94.2 fL (80.0-100.0); Mean Platelet Volume 7.5; RBC 3.62 m/uL (4.30-5.90); RDW 15.3 % (11.5-15.5); WBC 12.2 k/uL (3.8-10.6)
[2016-11-10 07:25] LABS: Calcium 8.7 mg/dL (8.4-10.2); Potassium 3.9 mmol/L (3.5-5.1)
[2016-11-10 07:29] VITALS: RESP 17
[2016-11-10] MEDS ORDERED: LEVOFLOXACIN 500 MG TAB PO SCH (09:00)
[2016-11-10] MEDS ORDERED: LEVOFLOXACIN 750 MG TAB PO SCH (09:00)
[2016-11-10 09:17] LABS: Hemoglobin A1C 5.5 % (4.2-6.1)
[2016-11-10] MEDS: ESCITALOPRAM 20 MG TAB PO SCH (10:20)
[2016-11-10] MEDS: ATORVASTATIN 40 MG TAB PO SCH (10:20)
[2016-11-10] MEDS: QUEtiapine 200 MG TAB PO SCH (10:20)
[2016-11-10] MEDS: ENOXAPARIN 40 MG/0.4 ML SYRINGE SQ SCH (10:20)
[2016-11-10] MEDS: CYCLOBENZAPRINE 5 MG TAB PO SCH (10:20)
[2016-11-10] MEDS: PANTOPRAZOLE 40 MG TABLET PO SCH (10:21)
[2016-11-10] MEDS: busPIRone HCl 10 MG TAB PO SCH (10:21)
[2016-11-10] MEDS: SYMBICORT 160-4.5 MCG INHALER INHALATION SCH (12:29)
--- NOTE | 2016-11-10 12:42 | US ---
EXAMINATION TYPE: US gallbladder DATE OF EXAM: 11/10/2016 8:52 AM COMPARISON: 10/27/2016 CLINICAL HISTORY: RUQ pain. Hx of gall stone, NPO EXAM MEASUREMENTS: Liver Length: 16.2 cm Gallbladder Wall: 0.2 cm CBD: 0.4 cm Right Kidney: 9.2 x 4.8 x 5.4 cm Pancreas: Head and tail not seen due to overlying bowel gas. Liver: wnl Gallbladder: Mobile echogenic focus with shadowing= 1.0 x 1.2 cm Evidence for sonographic Paulino's sign: neg CHD: wnl Right Kidney: Mild fullness right renal pelvis. Stomach mass. IMPRESSION: 1. Uncomplicated cholelithiasis. 2. Mild fullness right renal pelvis.
[2016-11-10 14:05] VITALS: BP 124/68; PULSE 87; TEMP 98.4
[2016-11-10] MEDS ORDERED: VANCOMYCIN TROUGH DUE 1 EACH MISC MISCELLANE ONE (15:00)
--- NOTE | 2016-11-11 07:15 | DS ---
DATE OF ADMISSION: 11/08/2016 DATE OF DISCHARGE: 11/10/2016 Patient is admitted for possibility of pneumonia, although my suspicion is low. Patient does have tracheobronchitis and pharyngitis because of which I will go ahead and continue the levofloxacin for 5 more days and patient has multiple other medical issues. Patient was complaining of tingling and numbness which appears to be peripheral neuropathy and patient was complaining of numbness in the back because of which I obtained a thoracolumbar spine CT which did not show any significant abnormality. Patient was evaluated by Neurology as well and we did a V/Q scan to rule out PE, because of a bit of pleuritic component of his pain in the thoracic area. Patient does have CKD. Patient was also complaining of right upper quadrant pain, found to have cholelithiasis. Surgery evaluated the patient as well and patient was also treated for gastritis. Patient is being discharged today in stable medical condition to home. Patient was seen and examined on the day of discharge. Vitals are stable. PHYSICAL EXAMINATION: GENERAL: The patient is alert and oriented x3, not in any acute distress. Well developed, well nourished. HEENT: Pupils are round and equally reacting to light. EOMI. No scleral icterus. No conjunctival pallor. Normocephalic, atraumatic. No pharyngeal erythema. No thyromegaly. CARDIOVASCULAR: S1 and S2 present. No murmurs, rubs, or gallops. PULMONARY: Chest is clear to auscultation, no wheezing or crackles. ABDOMEN: Soft, nontender, nondistended, normoactive bowel sounds. No palpable organomegaly. MUSCULOSKELETAL: No joint swelling or deformity. EXTREMITIES: No cyanosis, clubbing, or pedal edema. NEUROLOGICAL: Gross neurological examination did not reveal any focal deficits. SKIN: No rashes. Patient does have COPD with minimal exacerbation. Patient is off oxygen at this point of time. FINAL DIAGNOSES: 1. Neck pain and numbness in neck pain, probably due to degenerative disc disease. 2. Bilateral hand pain and bilateral lower limb pain secondary to peripheral neuropathy. 3. Bronchitis. 4. Chronic obstructive pulmonary disease with minimal exacerbation. 5. Right upper quadrant abdominal pain secondary to cholelithiasis. 6. Acute hypoxemia because of which I obtained a d-dimer which was elevated because of which patient had a V/Q scan which was negative. 7. 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 8. Gastroesophageal reflux disease. 9. Bipolar disorder. 10. Continuing nicotine dependence, counseling was provided. 11. Hypertension. Patient will be discharged today. Please refer to my depart summary for the list of discharge medications. Activity as tolerated. Cardiac diet. Follow up with Dr. Félix Leavitt in one week. Spent greater than 35 minutes in total discharge process.
== END 2016-11-10 16:52 | disposition home or self-care (01) | DRG 191 ==
LOC: EC 14:06 → 3SUR 19:02
PROVIDERS: ADMIT Internal Medicine; ATTEND Internal Medicine
DX: J44.0 Chronic obstructive pulmonary disease with (acute) lower respiratory infection (principal); G10 Huntington's disease; E87.8 Other disorders of electrolyte and fluid balance, not elsewhere classified; J90 Pleural effusion, not elsewhere classified; J98.11 Atelectasis; N18.3 Chronic kidney disease, stage 3 (moderate); G62.9 Polyneuropathy, unspecified; J40 Bronchitis, not specified as acute or chronic; I12.9 Hypertensive chronic kidney disease with stage 1 through stage 4 chronic kidney disease, or unspecified chronic kidney disease; F41.9 Anxiety disorder, unspecified; M50.13 Cervical disc disorder with radiculopathy, cervicothoracic region; K80.20 Calculus of gallbladder without cholecystitis without obstruction; K29.70 Gastritis, unspecified, without bleeding; K21.9 Gastro-esophageal reflux disease without esophagitis; F31.9 Bipolar disorder, unspecified; F17.290 Nicotine dependence, other tobacco product, uncomplicated; E78.5 Hyperlipidemia, unspecified; D64.9 Anemia, unspecified; E86.0 Dehydration; Z79.899 Other long term (current) drug therapy
CPT/HCPCS: 36415; 71020; 72125; 72128; 74176; 76705; 78582; 80048; 80053; 81003; 82150; 82306; 82607; 83036; 83690; 85025; 85027; 85379; 85610; 85652; 85730; 87040; 87502; 93005; 94640; 96361; 96365; 96366; 96367; 96375; 99285